=== PATIENT | female | born 2000 | race Caucasian/White ===

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

== ENCOUNTER 2022-05-07 07:57 | Emergency (ER) | payer OTHER, SELFPAY ==
--- NOTE | ~2022-05-07 | XR_ITS ---
EXAMINATION: XR ankle RT min 3V DATE: 05/07/2022 08:35 INDICATION: Right ankle injury and pain. TECHNIQUE: 4 views of right ankle were obtained. COMPARISON: None. FINDINGS: Bone alignment is normal. No fracture. Joint spaces are normal. IMPRESSION: 1. No fracture. Reviewed, dictated and finalized at location A. IMPRESSION: 1. No fracture.
[2022-05-07 08:00] VITALS: BP 128/54; PULSE 97; RESP 18; TEMP 36.6; O2SAT 98
--- NOTE | 2022-05-07 08:47 | ED.GENADULT ---
HPI - General Adult General Chief complaint: Extremity Injury, Lower Stated complaint: Right ankle injury Time Seen by Provider: 05/07/22 08:06 Source: patient Mode of arrival: ambulatory History of Present Illness HPI narrative: this is a 21-year-old female presents after she tripped over her dog last night causing pain and decreased range of motion in her right ankle currently there is no bruising no swelling but has tender lateral aspect over right ankle no numbness or tingling. Onset (ago): day(s) Location: lower extremity Severity: moderate Severity scale (1-10): 6 Related Data Home Medications Medication Instructions Recorded Confirmed bupropion HCl 150 mg 24 hr tablet, 150 mg PO DAILY 05/07/22 05/07/22 extended release escitalopram oxalate 10 mg tablet 10 mg PO HS 05/07/22 05/07/22 Allergies Allergy/AdvReac Type Severity Reaction Status Date / Time No Known Allergies Allergy Verified 05/07/22 08:32 Review of Systems Review of Systems: All systems reviewed & are unremarkable except as noted in HPI and below PMFSH Past Medical History Medical History (Updated 05/07/22 @ 08:51 by Tomi Yun MD) No active medical problems Patient denies medical problems Surgical History Surgical History No history of previous surgery Family History Family History Mother No problems noted. Social History Social History Smoking status: Never smoker Alcohol use details: does not drink alcohol Substance use: never Gender identity (if verbalized by the patient): Female Exam Const: General: healthy appearing Nutritional Appearance: well nourished Orientation/consciousness: patient oriented x3 Limitations: no limitations Eyes: Conjunctivae: conjunctivae normal Neck: Neck: normal visual inspection Chest: Chest palpation & inspection: normal inspection of the chest Resp: Effort & Inspection: normal respiratory effort Auscultation: clear to auscultation bilaterally GI: GI Palp: Yes Soft to palpation Skin: General skin exam: normal color Rashes: no rashes Wounds: no wounds Neuro: General: patient oriented x3 and moves all extremities Extrem: General: normal to inspection Other: Tender right ankle the lateral malleolus with palpation and movement Psych: Mental Status: mental status grossly normal Affect: normal affect Attitude: cooperative Course Course Emergency Course: patient received a dose of p.o. Motrin 400mg Juan C wrap was applied x-ray reviewed with patient which shows no acute fractures. Vital Signs Vital signs: Vital Signs Temperature 36.6 C 05/07/22 08:00 Pulse Rate 97 05/07/22 08:00 Respiratory Rate 18 05/07/22 08:00 Blood Pressure 128/54 L 05/07/22 08:00 Pulse Oximetry 98 05/07/22 08:00 Oxygen Delivery Room Air 05/07/22 08:00 Temperature 36.6 C 05/07/22 08:00 Pulse Rate 97 05/07/22 08:00 Respiratory Rate 18 05/07/22 08:00 Blood Pressure 128/54 L 05/07/22 08:00 Pulse Oximetry 98 05/07/22 08:00 Oxygen Delivery Room Air 05/07/22 08:00 Medical Decision Making Vital Signs Vital Signs: Vital Signs Temperature 36.6 C 05/07/22 08:00 Pulse Rate 97 05/07/22 08:00 Respiratory Rate 18 05/07/22 08:00 Blood Pressure 128/54 L 05/07/22 08:00 Pulse Oximetry 98 05/07/22 08:00 Oxygen Delivery Room Air 05/07/22 08:00 Temperature 36.6 C 05/07/22 08:00 Pulse Rate 97 05/07/22 08:00 Respiratory Rate 18 05/07/22 08:00 Blood Pressure 128/54 L 05/07/22 08:00 Pulse Oximetry 98 05/07/22 08:00 Oxygen Delivery Room Air 05/07/22 08:00 Critical Care Time Critical Care Time Critical Care Time: No Discharge Plan Discharge Clinical Impression: Ankle sprain and strain Patient Disposition: Home, Self-Care Co
[2022-05-07] MEDS: IBUPROFEN 400 MG TABLET PO (08:51)
[2022-05-07 08:58] VITALS: BP 111/74; PULSE 93; RESP 20; TEMP 36.7; O2SAT 98
== END 2022-05-07 09:15 | disposition home or self-care (01) ==
PROVIDERS: Emergency Provider Emergency Medicine; PCP Physician Assistant
DX: S93.401A Sprain of unspecified ligament of right ankle, initial encounter (principal); W01.0XXA Fall on same level from slipping, tripping and stumbling without subsequent striking against object, initial encounter
CPT/HCPCS: 73610; 99283; A9270

== ENCOUNTER 2022-08-01 17:54 | Emergency (ER) | payer OTHER, BC, SELFPAY ==
--- NOTE | ~2022-08-01 | XR_ITS ---
EXAMINATION: XR chest 2V Exam Date/Time: 08/01/2022 19:20 CDT HISTORY: fever Comparison: 02/01/2019; CT abdomen and pelvis 08/01/2022. RESULT: Lines, tubes, and devices: None. Lungs and pleura: Streaky bibasilar opacities representing atelectasis. Cardiomediastinal silhouette: Stable. Other: No acute osseous or upper abdominal finding. IMPRESSION: No acute cardiopulmonary process. Reviewed, dictated and finalized at location K.
--- NOTE | ~2022-08-01 | CT_ITS ---
EXAMINATION: CTA chest PE protocol DATE: 08/01/2022 19:58 INDICATION: tachycardia, pleuritic chest pain, elevated dimer TECHNIQUE: Computed tomography angiography (CTA) of the chest was performed with 100 mL Omnipaque-350 intravenous contrast timed to evaluate the pulmonary arteries. Coronal maximum intensity projection 3D-reconstructions were created by the technologist. The dose-length product (DLP) was 281.66 mGy-cm. Automated exposure control and iterative reconstruction technique were employed. COMPARISON: None. FINDINGS: Lung parenchyma and airways: Mild dependent atelectasis.. Pleura: Unremarkable. Thoracic inlet, axillae and chest wall: Unremarkable. Thoracic aorta: Normal. Mediastinum: Normal. Heart and pericardium: Normal. Coronary artery calcifications: Absent. Upper abdomen: No significant finding. Bones: No acute osseous finding. Pulmonary arteries: Study quality: Adequate. No pulmonary emboli detected. IMPRESSION: No CT evidence of acute pulmonary embolus. No acute intrathoracic process detected. Reviewed, dictated and finalized at location K. IMPRESSION: No CT evidence of acute pulmonary embolus. No acute intrathoracic process detec shirley.
--- NOTE | ~2022-08-01 | CT_ITS ---
EXAMINATION: CT abdomen pelvis w con DATE: 08/01/2022 19:25 INDICATION: abdominal pain, R flank pain, febrile TECHNIQUE: Computed tomography (CT) of the abdomen and pelvis was performed with 100 mL Omnipaque-350 intravenous contrast. Automated exposure control and iterative reconstruction technique were employe d. The dose-length product was 454.23 mGy-cm. COMPARISON: 10/19/2020. FINDINGS: Lower thorax: Unremarkable Liver: Normal. Biliary/Gallbladder: Gallbladder is normal. No bile duct dilation. Pancreas: No mass or duct dilation. Spleen: Normal. Adrenals:No mass. Kidneys: Patchy right upper pole enhancement with mild perinephric and periureteral stranding. No hyd ronephrosis, obstructing calcification, or suspicious mass GI tract: No small or large bowel dilation. Normal appendix. Mesentery/Peritoneum: No ascites, mass, or free air. Retroperitoneum: No mass. Pelvis: Pelvic organs are within normal limits. Soft Tissues: Soft tissues and body wall unremarkable. Bones: No acute osseous finding. IMPRESSION: Right pyelonephritis. Reviewed, dictated and finalized at location K. IMPRESSION: Right pyelonephritis.
[2022-08-01 17:57] VITALS: BP 128/78; PULSE 134; RESP 20; TEMP 38.6; O2SAT 98
--- NOTE | 2022-08-01 18:28 | ECG_ITS ---
Measurements Intervals [place] Rate: 106 P: 14 [place]: 150 QRS: 53 QRSD: 90 T: 3 QT: 308 QTc: 409 Interpretive Statements SINUS TACHYCARDIA NONSPECIFIC T-WAVE ABNORMALITY ABNORMAL RHYTHM ECG NO PREVIOUS ECG AVAILABLE FOR COMPARISON Electronically Signed On 08-02-2022 13:27:00 CDT by Santos Ayala M.D.
--- NOTE | 2022-08-01 18:33 | ED.FEMALEGU ---
HPI - Female Genitourinary General Chief complaint: Urogenital-Female <Jocelyne Morales PA-C - Last Filed: 08/02/22 00:48> Stated complaint: back pain, on abx for UTI <Jocelyne Morales PA-C - Last Filed: 08/02/22 00:48> Time Seen by Provider: 08/01/22 18:12 <Jocelyne Morales PA-C - Last Filed: 08/02/22 00:48> History of Present Illness HPI Narrative: 21-year-old female reports for evaluation of fevers for 3 days. Patient states her fevers have been as high as 103 at home with 600 mg of ibuprofen on board every 4-6 hours. She went to urgent care yesterday, was diagnosed with a UTI and put on Macrobid. She reports taking 3 doses of Macrobid without any improvement, therefore came to the ED for further evaluation. She is reporting right-sided flank pain, left upper quadrant abdominal pain and right lower quadrant abdominal pain. She reports nausea, no vomiting or diarrhea. Patient also is complaining of intermittent, sharp pleuritic chest pain x1 day. It does not radiate anywhere. Patient reports decreased p.o. intake. She denies vision changes, focal numbness or weakness, sore throat or congestion. Last dose of ibuprofen was 4 hours prior to arrival. <oJcelyne Morales PA-C - Last Filed: 08/02/22 00:48> Related Data Home medications: Home Medications Medication Instructions Recorded Confirmed bupropion HCl 150 mg 24 hr tablet, 150 mg PO DAILY 05/07/22 05/07/22 extended release escitalopram oxalate 10 mg tablet 10 mg PO HS 05/07/22 05/07/22 <Jocelyne Morales PA-C - Last Filed: 08/02/22 00:48> Allergies/Adverse reactions: Allergies Allergy/AdvReac Type Severity Reaction Status Date / Time No Known Allergies Allergy Verified 08/01/22 18:00 <CECE Gonzáles Last Filed: 08/02/22 00:48> Review of Systems Review of Systems: CONSTITUTIONAL: See HPI EYES: Denies visual changes, redness, or discharge. ENT: See HPI CARDIOVASCULAR: See HPI RESPIRATORY: Denies cough or dyspnea. GASTROINTESTINAL: See HPI GENITOURINARY: Denies dysuria or hematuria. SKIN: Denies rash or itching. MUSCULOSKELETAL: See HPI NEUROLOGIC: Denies headache, numbness, dizziness, or weakness. PSYCHIATRIC: Denies anxiety or depression. <Jocelyne Morales PA-C - Last Filed: 08/02/22 00:48> [facility] Past Medical History Medical History: Medical History (Updated 08/02/22 @ 00:00 by Diaz Mcneal) No active medical problems Patient denies medical problems <Jocelyne Morales PA-C - Last Filed: 08/02/22 00:48> Surgical History Surgical History: Surgical History No history of previous surgery <oJcelyne Morales PA-C - Last Filed: 08/02/22 00:48> Family History Family History: Family History Mother No problems noted. <Jocelyne Morales PA-C - Last Filed: 08/02/22 00:48> Social History Social History: Social History Smoking status: Never smoker Alcohol use details: does not drink alcohol Substance use: never Gender identity (if verbalized by the patient): Female <Jocelyne Morales PA-C - Last Filed: 08/02/22 00:48> Exam Narrative: GENERAL: Well-appearing, in no acute distress. Patient resting comfortably in bed. She is pleasant and conversational. HEAD: Normocephalic EYES: PERRLA, EOMI ENT: Nares clear. Mucous membranes moist. Posterior pharynx with scattered petechiae. No tonsillar swelling, erythema or exudates. Bilateral TMs are patel nonbulging. NECK: Supple. No nuchal rigidity CHEST: No respiratory distress. Clear to auscultation, no adventitious breath sounds. No chest wall tenderness to palpation. HEART: Regular rate and rhythm. No murmur heard. Normal peripheral pulses. ABDOMEN: Normal active bowel sounds. Abdomen soft with tenderness in the right lower qu
[2022-08-01] MEDS: SODIUM CHLORIDE 0.9% IV 1,000 ML 999 ML IV CONT (18:46)
[2022-08-01] MEDS: ONDANSETRON INJ 4 MG/2 ML VIAL IV PUSH (18:47)
[2022-08-01] MEDS: ACETAMINOPHEN 500 MG TABLET 1000 MG PO (18:50)
[2022-08-01 18:57] LABS: Basophils Absolute Auto 0.1 K/mm3 (0.0-0.1); Basophils Percent Auto 0.4 % (0.2-1.2); Hematocrit 38.5 % (37.0-47.0); Hemoglobin 12.4 g/dL (12.0-15.0); Immature Granulocyte Absolute 0.08 K/mm3 (0.00-0.031); Immature Granulocyte Percent A 0.5 % (0-0.5); Lymphocytes Absolute Auto 0.99 K/mm3 (0.9-3.2); Lymphocytes Percent Auto 6.7 % (18.3-44.2); Mean Corpuscular HGB Conc 32.2 g/dl (32-36); Mean Corpuscular Hemoglobin 28.7 pg (26-34); Mean Corpuscular Volume 89.1 fl (80-100); Mean Platelet Volume 10.3 fl (7.4-10.4); Monocytes Percent Auto 13.7 % (2.6-8.5); Neutrophils Absolute Auto 11.6 K/mm3 (1.3-6.7); Neutrophils Percent Auto 78.7 % (45.5-73.1); Platelet Count Result 177 k/mm3 (150-375); Red Blood Count 4.32 M/mm3 (4.2-5.4); Red Cell Distribution Width 12.7 % (11.5-14.5); White Blood Count 14.7 K/mm3 (4.5-10.0)
[2022-08-01 19:07] LABS: Alanine Aminotransferase 19 U/L (6-35); Albumin Level 4.7 g/dL (3.5-5.1); Alkaline Phosphatase 84 U/L (38-126); Anion Gap 10 mmol/L (8-16); Aspartate Amino Transferase 23 U/L (14-36); Bilirubin,Total 0.6 mg/dL (0.2-1.3); Blood Urea Nitrogen 8 mg/dL (7-17); Calcium 9.3 mg/dL (8.4-10.2); Carbon Dioxide 21 mmol/L (22-30); Chloride 105 mmol/L (98-107); Estimated CRCL calculation 88 ml/min; Estimated Glomerular Filt Rate > 60; Glucose 106 mg/dL (65-110); Lipase 44 U/L (23-300); Potassium 3.8 mmol/L (3.4-5.0); Sodium 136 mmol/L (137-145)
[2022-08-01 19:15] LABS: Appearance Urine Cloudy (Clear); Bacteria Urine 1+ /hpf; Bilirubin Urine Negative (Negative); Blood Urine 1+ (Negative); Color Urine Yellow (Yellow); Glucose Urine UA Negative (Negative); Ketones Urine 2+ mg/dL (Negative); Leukocyte Esterase Ur Trace LEU/UL (Negative); Nitrate Urine Negative (Negative); Protein Urine 1+ mg/dL (Negative); Specific Grav Ur 1.015 (1.001-1.035); Squamous Epithelial Cell Urine Moderate /hpf (Few); Urobilinogen Urine 0.2 mg/dL (<2.0); pH Urine 5.5 (5.0-9.0)
[2022-08-01 19:19] LABS: Troponin I < 0.012 ng/mL (0.000-0.034)
[2022-08-01 19:22] LABS: D Dimer 0.59 ug/mL (<0.48)
[2022-08-01 19:26] LABS: Add Urine Microscopic? YES
[2022-08-01 19:31] LABS: Strep Group A RT-PCR NOT DETECTED (Negative)
[2022-08-01 19:41] VITALS: BP 115/67; PULSE 101; RESP 18; TEMP 37.6; O2SAT 100
[2022-08-01 19:43] LABS: Influenza A QL RT-PCR Negative (Negative); Influenza B QL RT-PCR Negative (Negative); SARS-CoV-2 RNA PCR Negative (Negative)
[2022-08-01 21:52] VITALS: BP 114/64; PULSE 86; RESP 16; TEMP 37; O2SAT 100
== END 2022-08-01 21:53 | disposition home or self-care (01) ==
PROVIDERS: Emergency Provider Physician Assistant; PCP Physician Assistant
DX: N12 Tubulo-interstitial nephritis, not specified as acute or chronic (principal); Z20.822 Contact with and (suspected) exposure to COVID-19
CPT/HCPCS: 36415; 71046; 71275; 74177; 80053; 81001; 81025; 83605; 83690; 84484; 85025; 85380; 87086; 87636; 87651; 93005; 96361; 96365; 96375; 99284; A9270; J0696; J2405; J7030; Q9967

== ENCOUNTER 2023-03-21 15:54 | Outpatient (CLI) | payer OTHER, BC, SELFPAY ==
[2023-03-21 16:30] LABS: Hematocrit 38.6 % (35.0-49.0); Hemoglobin 12.6 g/dL (12.0-15.0); Mean Corpuscular HGB Conc 32.6 g/dL (32.0-36.0); Mean Corpuscular Hemoglobin 28.4 pg (27.0-31.0); Mean Corpuscular Volume 87.1 fL (78.0-102.0); Mean Platelet Volume 10.1 fl (9.2-11.8); Platelet Count Result 220 K/mm3 (150-420); Red Blood Count 4.43 M/mm3 (4.20-5.40); Red Cell Distribution Width 12.1 % (11.6-14.4); White Blood Count 6.7 K/mm3 (4.8-10.8)
[2023-03-21 16:47] LABS: CRP < 0.5 mg/dL (0.0-0.9)
[2023-03-21 17:20] LABS: Erythrocyte Sedimentation Rate 5 mm/hr (0-15)
[2023-03-27 21:38] LABS: Immunoglobulin A 129 mg/dL (47-310); TTG IGA AB <1.0 U/mL (<15.0)
== END 2023-03-21 15:55 | disposition home or self-care (01) ==
PROVIDERS: PCP Family Medicine; Visit Provider Nurse Practitioner
DX: R14.0 Abdominal distension (gaseous) (principal); R11.0 Nausea; R10.13 Epigastric pain; K21.9 Gastro-esophageal reflux disease without esophagitis; K90.49 Malabsorption due to intolerance, not elsewhere classified
CPT/HCPCS: 36415; 82784; 83516; 85027; 85652; 86140

== ENCOUNTER 2023-05-05 00:21 | Day surgery (SDC) | payer OTHER, BC, SELFPAY ==
[2023-04-26 11:50] VITALS: BMI 25.0
--- NOTE | 2023-05-03 10:31 | SUR.PREOP ---
Patient called regarding upcoming procedure. Reviewed preop instructions, appointment times, and procedure prep.
[2023-05-05 10:02] VITALS: BP 113/77; PULSE 77; RESP 20; TEMP 36.1; O2SAT 100
[2023-05-05] MEDS: LACTATED RINGERS 1,000 ML 150 ML IV CONT (10:16)
--- NOTE | 2023-05-05 11:03 | P.HP_ITS ---
History of Present Illness History of Present Illness Consent: Risks, benefits, and alternatives have been discussed and questions answered. Patient agrees to proceed with procedure. Chief complaint: GERD,Epigastric Pain,Gaseous,Nausea Narrative: Milagro Robles is a 22 year old female with bloating, discomfort after eating, she can not burp. Trial of omeprazole did not make a difference, serology for celiac negative. Review of Systems Review of Systems: All systems reviewed & are unremarkable except as noted in HPI and below PMFSH Past Medical History Medical History (Updated 03/21/23 @ 11:42 by Irene Gómez, MECHANICAL MAINTENANCE INSTRUCTOR) Abdominal bloating Epigastric pain GERD (gastroesophageal reflux disease) Nausea No active medical problems Patient denies medical problems Surgical History Surgical History No history of previous surgery [place] teeth removed Family History Family History Mother No problems noted. Social History Social History Smoking status: Never smoker Alcohol intake: current Drinks per week: 2 Alcohol use details: socially Substance use: never Substance use type: does not use Living arrangements: with family Gender identity (if verbalized by the patient): Female Spiritual care concerns: No Meds Home Medications and Allergies Home Medications Medication Instructions Recorded Confirmed Type bupropion HCl 300 mg 24 hr tablet, 300 mg PO QAM #30 tabs 03/20/23 05/05/23 Rx extended release omeprazole 20 mg capsule,delayed 20 mg PO DAILY #30 caps 03/21/23 04/26/23 Rx release Allergies Allergy/AdvReac Type Severity Reaction Status Date / Time No Known Allergies Allergy Verified 05/05/23 10:00 Vital Signs Vital Signs - 24 hr 05/05/23 10:02 Temperature 97 F L Pulse Rate 77 Respiratory Rate 20 Blood Pressure 113/77 Pulse Oximetry 100 Oxygen Delivery Room Air Exam Const: General: comfortable and no acute distress HENMT: Face/Nose/Sinus: Normal nares present Eyes: General: appearance normal, both eyes and all related structures Neck: Neck: no JVD Resp: Auscultation: clear to auscultation bilaterally Cardio: Rate: regular rate Rhythm: regular rhythm GI: Inspection: non-distended GI Palp: Yes Soft to palpation Skin: General skin exam: normal color Neuro: General: gait normal Speech: normal speech Extrem: General: normal to inspection Psych: Mental Status: mental status grossly normal Assessment and Plan Assessment and plan (1) Abdominal bloating: Code(s): R14.0 - Abdominal distension (gaseous) Status: Acute Assessment and Plan: egd with bx (2) Food intolerance in adult: Code(s): K90.49 - Malabsorption due to intolerance, not elsewhere classified Status: Acute
--- NOTE | 2023-05-05 11:03 | WPDANESEPPF ---
Anes - Initial Pre Proc Eval Procedure: Operation Date: 05/05/23 11:30 Proposed Procedures p Esophagogastroduodenoscopy - Kennedy Patel MD Date/Time: 05/05/23 11:03 Surgeon: Kennedy Patel MD Pre Op Diagnosis: GERD,Epigastric Pain,Gaseous,Nausea Patient Data Age: 22 Gender: F Height: 1.63 m Weight: 62.1 kg Last Vital Signs Temp 97 F L 05/05/23 10:02 Pulse 77 05/05/23 10:02 Resp 20 05/05/23 10:02 BP 113/77 05/05/23 10:02 Pulse Ox 100 05/05/23 10:02 O2 Del Method Room Air 05/05/23 10:02 Allergies Allergy/AdvReac Type Severity Reaction Status Date / Time No Known Allergies Allergy Verified 05/05/23 10:00 Home Medications Medication Instructions Recorded Confirmed Type bupropion HCl 300 mg 24 hr tablet, 300 mg PO QAM #30 tabs 03/20/23 05/05/23 Rx extended release omeprazole 20 mg capsule,delayed 20 mg PO DAILY #30 caps 03/21/23 04/26/23 Rx release Patient hx anesthesia problems: none Family hx anesthesia problems: none Results Review: All pre-operative results and documents have been reviewed as part of the pre-operative evaluation. [facility] Past Medical History Medical History (Updated 03/21/23 @ 11:42 by Irene Gómez APRN) Abdominal bloating Epigastric pain GERD (gastroesophageal reflux disease) Nausea No active medical problems Patient denies medical problems Surgical History Surgical History No history of previous surgery [place] teeth removed Family History Family History Mother No problems noted. Social History Social History Smoking status: Never smoker Alcohol intake: current Drinks per week: 2 Alcohol use details: socially Substance use: never Substance use type: does not use Living arrangements: with family Gender identity (if verbalized by the patient): Female Spiritual care concerns: No Anes - Eval Final PreProcedure Day of Procedure 05/05/23 11:03 Patient weight: normal Heart: regular rate and rhythm Lungs: clear to auscultation Airway: Mallampati scale class II Neurological: alert and oriented Last oral intake: >/= 8 hours ASA classification: II Emergent: no Anesthetic plan: proceed Anesthesia type and monitoring: general GIVS and standard monitoring Results Review: All pre-operative results and documents have been reviewed as part of the pre-operative evaluation. Informed Consent: The patient's anesthetic plan and its attendant risks and benefits were discussed with the patient/family/POA. Questions were solicited and answers provided to the satisfaction of the patient/family/POA.
[2023-05-05 11:17] VITALS: BP 100/65; PULSE 76; RESP 21; O2SAT 100
[2023-05-05 11:27] VITALS: BP 105/64; PULSE 78; RESP 18; O2SAT 100
[2023-05-05 11:37] VITALS: BP 102/74; PULSE 68; RESP 20; O2SAT 100
== END 2023-05-05 11:45 | disposition home or self-care (01) ==
PROVIDERS: PCP Family Medicine; Visit Provider Internal Medicine Gastroenterology
PROC: 0DJ08ZZ Inspection of Upper Intestinal Tract, Via Natural or Artificial Opening Endoscopic (ICD-10-PCS; CPT 43235; principal; 2023-05-05 11:30)
DX: K29.50 Unspecified chronic gastritis without bleeding (principal); K21.9 Gastro-esophageal reflux disease without esophagitis
CPT/HCPCS: 43239; 88305; J2001; J2704; J7120

== ENCOUNTER 2023-06-23 12:32 | Outpatient (NON) | payer OTHER, BC, SELFPAY ==
[2023-06-23 12:44] LABS: Appearance Urine Clear (Clear); Bilirubin Urine Negative (Negative); Blood Urine 3+ (Negative); Color Urine Light Yellow (Yellow); Glucose Urine UA Negative (Negative); Ketones Urine Negative (Negative); Leukocyte Esterase Ur 1+ (Negative); Nitrate Urine Negative (Negative); Protein Urine Trace (Negative); Urobilinogen Urine 0.2 mg/dL (0.2-1.0)
[2023-06-23 13:05] LABS: Add Urine Microscopic? YES; Bacteria Urine 2+ /hpf; Squamous Epithelial Cell Urine Few /hpf (Few)
== END 2023-06-23 12:33 | disposition home or self-care (01) ==
LOC: CHSLAB 12:34
PROVIDERS: Visit Provider Nurse Practitioner Family
DX: N39.0 Urinary tract infection, site not specified (principal)
CPT/HCPCS: 81001; 87077; 87086; 87088; 87186

== ENCOUNTER 2023-07-12 07:33 | Outpatient (CLI) | payer OTHER, BC, SELFPAY ==
--- NOTE | ~2023-07-12 | US_ITS ---
US abdomen limited INDICATION: Abdominal pain PROCEDURE: Realtime right upper abdominal ultrasound. COMPARISON: No prior studies for comparison. FINDINGS: The pancreas is normal without focal mass or pancreatic ductal dilation. Liver echotexture is normal without focal mass or intrahepatic biliary dilatation. There is normal directional flow i n the portal vein. The gallbladder is normal without stones, gallbladder wall thickening or pericholecystic fluid. Comm on bile duct measures 2 mm. No sonographic Alamo's sign. IMPRESSION: 1: Normal limited abdominal ultrasound. Reviewed, dictated and finalized at location B.
== END 2023-07-12 07:34 | disposition home or self-care (01) ==
PROVIDERS: PCP Nurse Practitioner Family; Visit Provider Nurse Practitioner
DX: K31.89 Other diseases of stomach and duodenum (principal); R14.0 Abdominal distension (gaseous)
CPT/HCPCS: 76705

== ENCOUNTER 2023-07-13 08:04 | Outpatient (CLI) | payer OTHER, BC, SELFPAY ==
--- NOTE | ~2023-07-13 | NM_ITS ---
EXAMINATION: NM hepatobiliary wo pharm DATE: 07/13/2023 10:39 INDICATION: Postprandial bloating. Reactive gastritis. COMPARISON: CT abdomen and pelvis 08/01/2022 TECHNIQUE: 5.1 mCi Tc-99m mebrofenin (Choletec) was administered intravenously. Scintigraphic images of the abdomen were obtained for one hour. Then, the patient drank 8 oz Ensure, and imaging was cont inued for 60 minutes. FINDINGS: There is normal clearance of radiotracer from the blood pool. There is homogeneous tracer u ptake by the liver. Activity progresses to the bowel and gallbladder. Gallbladder ejection fraction (GBEF) was 60%. Note that with this technique, normal GBEF >= 33%. IMPRESSION: 1. Normal hepatobiliary scintigraphy. Reviewed, dictated and finalized at location A.
== END 2023-07-13 08:05 | disposition home or self-care (01) ==
PROVIDERS: PCP Nurse Practitioner Family; Visit Provider Nurse Practitioner
DX: K31.89 Other diseases of stomach and duodenum (principal); R14.0 Abdominal distension (gaseous)
CPT/HCPCS: 78226; A9537

== ENCOUNTER 2023-07-14 07:38 | Outpatient (CLI) | payer OTHER, BC, SELFPAY ==
--- NOTE | ~2023-07-14 | NM_ITS ---
EXAM: NM gastric emptying study DATE: 07/14/2023 15:38 INDICATION: Postprandial bloating. TECHNIQUE: A gastric emptying study was performed using the methodology of Pablo WORTHY, et al. J Nucl Med 2007; 48:568-572. The patient was given a meal consisting of 2 scrambled eggs labeled with 0.985 mCi Tc-99m sulfur colloid, 2 slices of toast, two packages of jam, and approximately 120 mL of water . Simultaneous anterior and posterior 1-min images of the abdomen were obtained with the patient supi ne at multiple time points over a total period of 4 hours. The geometric mean of anterior and posteri or views was determined, and the percentage retention was calculated for each time point. COMPARISON: CT abdomen and pelvis 08/01/2022 FINDINGS: Gastric retention of the radiotracer-labeled meal was 55%, 20%, and 1% at the 1-hour, 2-ho ur, and 4-hour time points, respectively. With this technique, apparent rapid gastric emptying is sug gested by <30% gastric retention at 1 hour. Delayed gastric emptying is defined by gastric retention of >90% at 1 hour, >60% retention at 2 hours, or >10% retention at 4 hours. IMPRESSION: 1. Normal gastric emptying. Reviewed, dictated and finalized at location A. IMPRESSION: 1. Normal gastric emptying.
== END 2023-07-14 07:39 | disposition home or self-care (01) ==
LOC: ANHIMG 07:41
PROVIDERS: PCP Nurse Practitioner Family; Visit Provider Nurse Practitioner
DX: R14.0 Abdominal distension (gaseous) (principal)
CPT/HCPCS: 78264; A9541

== ENCOUNTER 2023-12-13 09:44 | Outpatient (CLI) | payer OTHER, BC, SELFPAY ==
[2023-12-13 10:31] LABS: Hemoglobin 12.9 g/dL (12.0-15.0); Mean Corpuscular HGB Conc 33.9 g/dl (32-36); Mean Corpuscular Hemoglobin 29.8 pg (26-34); Mean Corpuscular Volume 87.8 fl (80-100); Mean Platelet Volume 9.3 fl (7.4-10.4); Platelet Count Result 225 k/mm3 (150-375); Red Blood Count 4.33 M/mm3 (4.2-5.4); White Blood Count 5.2 K/mm3 (4.5-10.0)
[2023-12-13 11:08] LABS: Alanine Aminotransferase 23 U/L (6-35); Albumin Level 4.9 g/dL (3.5-5.1); Alkaline Phosphatase 44 U/L (38-126); Anion Gap 9 mmol/L (4-12); Aspartate Amino Transferase 26 U/L (14-36); Bilirubin,Total 0.6 mg/dL (0.2-1.3); Blood Urea Nitrogen 14 mg/dL (7-17); CRP < 0.5 mg/dL (<1.0); Calcium 9.6 mg/dL (8.4-10.2); Carbon Dioxide 28 mmol/L (22-30); Chloride 103 mmol/L (98-107); Estimated Glomerular Filt Rate > 60; Glucose 89 mg/dL (65-110); Potassium 4.2 mmol/L (3.4-5.0); Sodium 140 mmol/L (137-145)
[2023-12-13 11:35] LABS: Erythrocyte Sedimentation Rate 12 mm/hr (0-20)
[2023-12-13 11:41] LABS: Iron 276 ug/dL (37-170)
[2023-12-13 11:51] LABS: Percent Iron Saturation 80 % (20-50)
[2023-12-19 12:54] LABS: Vitamin D 1,25 (OH)2 Total 35 pg/mL (18-72); Vitamin D2 1,25 (OH)2 <8 pg/mL; Vitamin D3 1,25 (OH)2 35 pg/mL
== END 2023-12-13 09:45 | disposition home or self-care (01) ==
LOC: ANHLAB 09:45
PROVIDERS: PCP Family Medicine; Visit Provider Nurse Practitioner
DX: R10.30 Lower abdominal pain, unspecified (principal); R14.0 Abdominal distension (gaseous)
CPT/HCPCS: 36415; 80053; 82607; 82652; 82728; 83540; 83550; 85027; 85652; 86140

== ENCOUNTER 2024-01-19 00:06 | Day surgery (SDC) | payer OTHER, BC, SELFPAY ==
[2024-01-08 13:04] VITALS: BMI 23.3
[2024-01-19 06:48] VITALS: BP 110/88; PULSE 88; RESP 20; TEMP 35.8; O2SAT 100; BMI 23.5
[2024-01-19] MEDS: LACTATED RINGERS 1,000 ML 150 ML IV CONT (07:15)
--- NOTE | 2024-01-19 07:23 | P.PNAN_ITS ---
Anes - Initial Pre Proc Eval Procedure: Operation Date: 01/19/24 08:00 Proposed Procedures p Colonoscopy - Mio Abdalla MD Date/Time: 01/19/24 07:23 Surgeon: Mio Abdalla MD Pre Op Diagnosis: lower abd pain, abd distension (gaseous) Patient Data Age: 23 Gender: F Height: 1.65 m Weight: 64.2 kg Last Vital Signs Temp 35.8 C L 01/19/24 06:48 Pulse 88 01/19/24 06:48 Resp 20 01/19/24 06:48 BP 110/88 01/19/24 06:48 Pulse Ox 100 01/19/24 06:48 O2 Del Method Room Air 01/19/24 06:48 Allergies Allergy/AdvReac Type Severity Reaction Status Date / Time No Known Allergies Allergy Verified 01/19/24 07:02 Home Medications ?Medication ?Instructions ?Recorded ?Confirmed ?Type nortriptyline 10 mg capsule 10 mg PO QHS #30 caps 12/13/23 01/19/24 Rx omeprazole 40 mg capsule,delayed 40 mg PO DAILY #30 caps 12/13/23 01/19/24 Rx release Vitamin D (with calcium) 1 cap PO DAILY 01/08/24 01/19/24 History bupropion HCl 300 mg 24 hr tablet, 300 mg PO DAILY 01/08/24 01/19/24 History extended release clindamycin 1.2 %(1 %base)-benzoyl 1 applic topical DAILY 01/08/24 01/19/24 History peroxide 3.75 % topical gel in pump Patient hx anesthesia problems: none Family hx anesthesia problems: none Results Review: All pre-operative results and documents have been reviewed as part of the pre- operative evaluation. [facility] Past Medical History Medical History GERD (gastroesophageal reflux disease) Epigastric pain Abdominal bloating Nausea Patient denies medical problems No active medical problems Surgical History Surgical History [place] teeth removed No history of previous surgery Family History Family History Mother No problems noted. Social History Social History Smoking status: Never smoker Alcohol intake: current Drinks per week: 2 Alcohol use details: socially Substance use: never Substance use type: does not use Living arrangements: with family Gender identity (if verbalized by the patient): Female Spiritual care concerns: No Anes - Eval Final PreProcedure Day of Procedure 01/19/24 07:23 Patient weight: normal Heart: regular rate and rhythm Lungs: clear to auscultation Airway: Mallampati scale class II Neurological: alert and oriented Last oral intake: >/= 8 hours ASA classification: II Emergent: no Anesthetic plan: proceed Anesthesia type and monitoring: general GIVS and standard monitoring Results Review: All pre-operative results and documents have been reviewed as part of the pre- operative evaluation. Informed Consent: The patient's anesthetic plan and its attendant risks and benefits were discussed with the patient/family/POA. Questions were solicited and answers provided to the satisfaction of the patient/family/POA.
[2024-01-19 07:26] LABS: BEDSIDEPREGUCG Negative (Negative)
--- NOTE | 2024-01-19 07:57 | P.HP_ITS ---
H&P: HPI History of Present Illness Date/Time: 01/19/24 07:57 Chief Complaint: Abdominal pain Narrative: this patient has a longstanding history of abdominal pain, bloating, and recently found to have high calprotectin level, around 1200. She is referred for colonoscopy to rule out inflammatory bowel disease. She has been extensively studied for structural or mucosal diseases of the GI tract, and had had endoscopy, gastric emptying studies, serologic studies to rule out celiac disease, all within normal limits. Review of Systems Review of Systems: All systems reviewed & are unremarkable except as noted in HPI and below PMFSH Past Medical History Medical History GERD (gastroesophageal reflux disease) Epigastric pain Abdominal bloating Nausea Patient denies medical problems No active medical problems Surgical History Surgical History [place] teeth removed No history of previous surgery Family History Family History Mother No problems noted. Social History Social History Smoking status: Never smoker Alcohol intake: current Drinks per week: 2 Alcohol use details: socially Substance use: never Substance use type: does not use Living arrangements: with family Gender identity (if verbalized by the patient): Female Spiritual care concerns: No Meds Home Medications and Allergies Home Medications ?Medication ?Instructions ?Recorded ?Confirmed ?Type nortriptyline 10 mg capsule 10 mg PO QHS #30 caps 12/13/23 01/19/24 Rx omeprazole 40 mg capsule,delayed 40 mg PO DAILY #30 caps 12/13/23 01/19/24 Rx release Vitamin D (with calcium) 1 cap PO DAILY 01/08/24 01/19/24 History bupropion HCl 300 mg 24 hr tablet, 300 mg PO DAILY 01/08/24 01/19/24 History extended release clindamycin 1.2 %(1 %base)-benzoyl 1 applic topical DAILY 01/08/24 01/19/24 History peroxide 3.75 % topical gel in pump Allergies Allergy/AdvReac Type Severity Reaction Status Date / Time No Known Allergies Allergy Verified 01/19/24 07:02 Vital Signs Vital Signs - 24 hr 01/19/24 06:48 Temperature 96.4 F L Pulse Rate 88 Respiratory Rate 20 Blood Pressure 110/88 Pulse Oximetry 100 Oxygen Delivery Room Air Exam Const: General: comfortable and no acute distress HENMT: Face/Nose/Sinus: Normal nares present Eyes: General: appearance normal, both eyes and all related structures Neck: Neck: no JVD Resp: Auscultation: clear to auscultation bilaterally Cardio: Rate: regular rate Rhythm: regular rhythm GI: Inspection: non-distended GI Palp: Yes Soft to palpation Skin: General skin exam: normal color Neuro: General: gait normal Speech: normal speech Extrem: General: normal to inspection Psych: Mental Status: mental status grossly normal Assessment and Plan Assessment and plan (1) Elevated fecal calprotectin: Code(s): R19.5 - Other fecal abnormalities Status: Acute Assessment and Plan: Will perform colonoscopy to investigate elevated calprotectin, ruling out inflammatory bowel disease. The patient does not have rectal bleeding, diarrhea or tenesmus. The patient is deemed a good candidate for the procedure. Consent signed. Will proceed.
[2024-01-19 08:23] VITALS: BP 102/69; PULSE 90; RESP 18; O2SAT 100
[2024-01-19 08:33] VITALS: BP 103/68; PULSE 83; RESP 20; O2SAT 100
[2024-01-19 08:43] VITALS: BP 99/62; PULSE 83; RESP 20; O2SAT 100
== END 2024-01-19 08:55 | disposition home or self-care (01) ==
PROVIDERS: Anesthesiology; PCP Nurse Practitioner Family; Referring Provider Nurse Practitioner; Visit Provider Internal Medicine Gastroenterology
PROC: 0DJD8ZZ Inspection of Lower Intestinal Tract, Via Natural or Artificial Opening Endoscopic (ICD-10-PCS; CPT 45378; principal; 2024-01-19 08:00)
DX: R19.5 Other fecal abnormalities (principal); K21.9 Gastro-esophageal reflux disease without esophagitis; Z98.890 Other specified postprocedural states
CPT/HCPCS: 45380; 88305; J2003; J2704; J7120

== ENCOUNTER 2024-02-01 17:10 | Outpatient (CLI) | payer BC, OTHER, SELFPAY | END 2024-02-01 17:11 | disposition home or self-care (01) | LOC: ANHLAB 17:14 | PROVIDERS: PCP Nurse Practitioner Family; Visit Provider Obstetrics & Gynecology | DX: Z01.812 Encounter for preprocedural laboratory examination (principal); R10.2 Pelvic and perineal pain | CPT/HCPCS: 36415; 86850; 86900; 86901 ==

== ENCOUNTER 2024-02-08 01:28 | Day surgery (SDC) | payer BC, OTHER, SELFPAY ==
[2024-01-26 12:13] VITALS: BMI 24.1
--- NOTE | 2024-01-26 12:21 | PC.NURSE ---
Report to the Outpatient Waiting Room, entrance under the green pavilion located off [facility], at time _0600_ on date _[id number]_. Planned Procedure Time: _0730_.? Time changes happen often and if your time is changed the preop area will call you the afternoon before. - You and your visitor will be asked to self-screen and do not enter if you have any COVID symptoms. Please call surgeon if you need to reschedule. - A mask is optional within the hospital at this time. Patients may have clear liquids (water, carbonated beverages, clear teas, apple juice) until 3 hours prior to surgery with a maximum of 20 ounces. - No food from midnight until time of surgery and no smoking. This includes no chewing gum, candy or mints. Take only the following medications with a SIP of water on the morning of surgery: ____Bupropion DO NOT STOP ANY OF YOUR OTHER PRESCRIPTION MEDICATIONS PRIOR TO SURGERY EXCEPT THE FOLLOWING Medications to discontinue per physician ____None Please no make-up, nail libyan, hairspray, perfume, deodorant, or body powder the day of surgery.? No jewelry (including any body piercings) or valuables the day of surgery, leave them at home.? Please take a shower or bath the night before, or the morning of, surgery with an antibacterial soap.? Wear comfortable, loose fitting clothing.? - Jewelry must be removed prior to entering the operating room.? Rings and piercings that are not removed may be cut off. - The hospital will not accept responsibility for valuables.? - Please leave all valuables, including medications, at home the day of surgery. If you are going home after surgery, a licensed tilt tray driver must drive you home.? - NO public transportation without another adult if you receive anesthesia. - We recommend that an adult stay with you for 24 hours following discharge. - We also recommend that you do not drive, make important decision, drink alcoholic beverages, or take any drugs that were not prescribed by your health care provider for at least 24 hours after your discharge time. Follow any additional instructions given to you from your surgeon. Telephone instructions given to _Milagro_and asked if any additional questions and then verbalized understanding. Patient advised to call surgeon office or pre surgery nurse liaison [phone] if any additional questions.
--- NOTE | 2024-02-05 11:55 | PM.IMHP ---
H&P: HPI History of Present Illness Date/Time: 02/05/24 11:55 Chief Complaint: Pelvic pain Narrative: 23-year-old female admitted for laparoscopy secondary to chronic and severe pelvic pain she has dyspareunia and discomfort ultrasound was unhelpful risks and benefits of this procedure reviewed clear exclusive of , aspiration pneumonia, bleeding, transfusion, perforation injury to bowel, bladder, ureters, or other internal organs with need for open laparotomy. She received the [employer] handout entitled laparoscopy. She had all questions answered. She asked to proceed. Review of Systems Review of Systems: All systems reviewed & are unremarkable except as noted in HPI and below PMFSH Past Medical History Medical History GERD (gastroesophageal reflux disease) Epigastric pain Abdominal bloating Nausea Patient denies medical problems No active medical problems Surgical History Surgical History [place] teeth removed No history of previous surgery Family History Family History Mother No problems noted. Social History Social History Smoking status: Never smoker Tobacco type: e-cigarettes/vaping Additional smoking assessment comments: quit vaping. Alcohol intake: current Drinks per week: 2 Alcohol use details: socially Substance use: never Substance use type: does not use Living arrangements: with family Gender identity (if verbalized by the patient): Female Spiritual care concerns: No Meds Home Medications and Allergies Home Medications ?Medication ?Instructions ?Recorded ?Confirmed ?Type bupropion HCl 300 mg 24 hr tablet, 300 mg PO DAILY 01/08/24 01/26/24 History extended release clindamycin 1.2 %(1 %base)-benzoyl 1 applic topical DAILY 01/08/24 01/26/24 History peroxide 3.75 % topical gel in pump Allergies Allergy/AdvReac Type Severity Reaction Status Date / Time No Known Allergies Allergy Verified 01/26/24 12:12 Exam Const: General: cooperative, healthy appearing and comfortable Nutritional Appearance: average body habitus Orientation/consciousness: oriented to person, oriented to place and oriented to time HENMT: Head: normal to inspection Resp: Effort & Inspection: normal respiratory effort Cardio: Rate: regular rate Rhythm: regular rhythm Heart sounds: S1 normal heart sound present and S2 normal heart sound present GI: Inspection: normal to inspection : External Female Exam: normal external appearance Speculum Exam - Vagina: normal appearance of the vagina Speculum Exam - Cervix: normal appearance of the cervix Bimanual exam- vagina & uterus: non-tender Bimanual Exam- Adnexa, other: tender bilaterally Assessment and Plan Assessment and plan (1) Pelvic pain: Code(s): R10.2 - Pelvic and perineal pain Status: Acute Plan proceed with laparoscopy
[2024-02-08] VITALS (10 sets, daily range): BP systolic 100–124; BP diastolic 55–76; PULSE 78–92; RESP 16–20; TEMP 36.4–37.1; O2SAT 98–100
--- NOTE | 2024-02-08 06:41 | WPDHPUPDATE1 ---
History and Physical Update Update Date/Time: 02/08/24 06:41 History and Physical has been reviewed, including an updated exam of the patient. There are NO changes in the patient's condition. Risks, benefits, and alternatives have been discussed and questions answered. Patient agrees to proceed with procedure.
--- NOTE | 2024-02-08 06:48 | WPDHPUPDATE1 ---
History and Physical Update Update Date/Time: 02/08/24 06:48 History and Physical has been reviewed, including an updated exam of the patient. There are NO changes in the patient's condition. Risks, benefits, and alternatives have been discussed and questions answered. Patient agrees to proceed with procedure. add chromotubtion per patient request
[2024-02-08] MEDS: ACETAMINOPHEN 500 MG TABLET 1000 MG PO (06:54)
[2024-02-08] MEDS: LACTATED RINGERS 1,000 ML 30 ML IV CONT (06:54)
[2024-02-08] MEDS: KETOROLAC 15 MG/ML VIAL (*BKC) IV PUSH (06:54)
--- NOTE | 2024-02-08 07:24 | P.PNAN_ITS ---
Anes - Initial Pre Proc Eval Procedure: Operation Date: 02/08/24 07:30 Proposed Procedures p Diagnostic Laparoscopy - Alex Gonzalez MD Date/Time: 02/08/24 07:24 Surgeon: Alex Gonzalez MD Pre Op Diagnosis: pelvic pain, endometriosis, Dysmenorrhea Patient Data Age: 23 Gender: F Height: 1.65 m Weight: 65.9 kg Allergies Allergy/AdvReac Type Severity Reaction Status Date / Time No Known Allergies Allergy Verified 01/26/24 12:12 Home Medications ?Medication ?Instructions ?Recorded ?Confirmed ?Type bupropion HCl 300 mg 24 hr tablet, 300 mg PO DAILY 01/08/24 01/26/24 History extended release clindamycin 1.2 %(1 %base)-benzoyl 1 applic topical DAILY 01/08/24 01/26/24 History peroxide 3.75 % topical gel in pump hydrocodone 5 mg-acetaminophen 325 1 tablet PO Q4H PRN pain #20 tabs 02/08/24 Rx mg tablet Patient hx anesthesia problems: none Family hx anesthesia problems: none Results Review: All pre-operative results and documents have been reviewed as part of the pre- operative evaluation. [facility] Past Medical History Medical History GERD (gastroesophageal reflux disease) Epigastric pain Abdominal bloating Nausea Patient denies medical problems No active medical problems Surgical History Surgical History [place] teeth removed No history of previous surgery Family History Family History Mother No problems noted. Social History Social History Smoking status: Never smoker Tobacco type: e-cigarettes/vaping Additional smoking assessment comments: quit vaping. Alcohol intake: current Drinks per week: 2 Alcohol use details: socially Substance use: never Substance use type: does not use Living arrangements: with family Gender identity (if verbalized by the patient): Female Spiritual care concerns: No Anes - Eval Final PreProcedure Day of Procedure 02/08/24 07:24 Patient weight: normal Heart: regular rate and rhythm Lungs: clear to auscultation Airway: Mallampati scale class 1 Neurological: alert and oriented Last oral intake: >/= 8 hours ASA classification: I Emergent: no Anesthetic plan: proceed Anesthesia type and monitoring: general ETT and standard monitoring Results Review: All pre-operative results and documents have been reviewed as part of the pre- operative evaluation. Pt in excellent health overall. Informed Consent: The patient's anesthetic plan and its attendant risks and benefits were discussed with the patient/family/POA. Questions were solicited and answers provided to the satisfaction of the patient/family/POA.
[2024-02-08] MEDS: METHYLENE BLUE 0.5% INJ 10 ML AMPULE 20 ML IRRIGATION (07:55)
--- NOTE | 2024-02-08 07:55 | P.OP_ITS ---
Procedure Note - Detailed Date of Procedure 02/08/24 Pre-op Diagnosis pelvic pain, endometriosis, Dysmenorrhea Post-op Diagnosis Same Procedure Performed Laparoscopy with destruction of endometriosis. Chromopertubation Surgeon Alex Gonzalez MD Anesthesia General Indications 23-year-old female history of endometriosis admitted for laparoscopy and chromopertubation Findings Multiple areas of powder burn endometriosis along each uterosacral ligament about 10cc of serosanguineous fluid cul-de-sac normal-appearing ovaries. Tubes were patent. Uterus appeared adenoma attic. Normal-appearing appendix/gallbladder/liver edge Description of Procedure Patient was prepped and draped in the normal sterile fashion placed in dorsal lithotomy position. Under excellent general endotracheal anesthesia weighted s peculum placed in posterior fornix vagina. Anterior lip of the cervix grasped with single-tooth tenaculum. Castillo's cannula inserted the single-tooth and attached for uterine manipulation and chromotubation later. The bladder emptied of clear urine the weighted speculum was removed gloves were changed. An infraumbilical incision made the Veress needle passed in the. With CO2 CO2 gas to 15 of mercury. The 5mm trocar advanced with the Optiview under direct visualization assuring no injury. The the patient placed in Trendelenburg and a suprapubic incision made. 5mm trocar advanced under direct visualization assuring. About 20cc of serosanguineous fluid was noted the cul-de-sac and this was vigorously irrigated. Multiple areas of endometriosis along right left uterosacral ligaments were seen and these were point cauterized at 35 w per 2nd with monopolar cautery. Appendix gallbladder and liver edge appeared within normal limits. No other abnormalities were seen. Methylene blue was pushed through the uterus and cervix and each tube drained clearly. Uterus itself did appear spongy and possibly consistent with the adenomyosis. The instruments withdrawn. The patient was awakened. The patient went recovery in satisfactory condition. The incisions closed with 4 Monocryl and glue after gas removed from the abdomen. There were no complications and all sponge, needle, instrument counts were correct. Estimated Blood Loss 5 Drains No Packing No Pathology None sent Complications No immediate complications Condition Stable Disposition PACU
[2024-02-08 07:56] LABS: BEDSIDEPREGUCG Negative (Negative)
[2024-02-08] MEDS: oxyCODONE HCL (*CRX) 5 MG TAB IR PO (09:15)
== END 2024-02-08 10:48 | disposition home or self-care (01) ==
PROVIDERS: PCP Nurse Practitioner Family; Visit Provider Obstetrics & Gynecology
PROC: (CPT 49320; principal; 2024-02-08 07:30)
DX: N80.3C3 Endometriosis of bilateral uterosacral ligament(s), unspecified depth (principal); K21.9 Gastro-esophageal reflux disease without esophagitis; Z98.890 Other specified postprocedural states; Z87.891 Personal history of nicotine dependence; Z79.891 Long term (current) use of opiate analgesic
CPT/HCPCS: 58662; A9270; J1100; J1885; J2003; J2250; J2405; J2704; J3010; J7030; J7120; Q9968

== ENCOUNTER 2024-06-25 17:21 | Emergency (ER) | payer BC, OTHER, SELFPAY ==
--- NOTE | ~2024-06-25 | US_ITS ---
EXAMINATION: US OB <= 14 weeks fetus INDICATION: lower abd cramping TECHNIQUE: Sonography of the pelvis was performed by transabdominal and transvaginal techniques. COMPARISON: None. RESULT: Uterus: 11.9 x 7.7 x 9.1 cm. Anteverted. Homogenous myometrium. Intrauterine gestational sac: Single present. Embryo: Single present. [place] rump length: 7.08 cm, corresponding gestational age 13 weeks, 2 days. Gestational heart rate: present 156 bpm. Subgestational hematoma: Absent . Right ovary: 3.7 x 3.1 x 2.9. No adnexal mass. Left ovary: Not visualized. No adnexal mass. Pelvis free fluid: None. IMPRESSION: Single, live intrauterine gestation. Estimated Gestational Age: 13 weeks, 2 days by crown rump length. MENDEL by ultrasound 12/29/2024. Reviewed, dictated and finalized at location K. IMPRESSION: Single, live intrauterine gestation. Estimated Gestational Age: 13 weeks, 2 days by crown rump length. MENDEL by ultra sound 12/29/2024.
[2024-06-25 17:23] VITALS: BP 129/82; PULSE 90; RESP 20; TEMP 36.7; O2SAT 100
--- OUTSIDE RECORDS SUMMARY | 2024-06-25 17:23 | XMS_ITS | Patient Health Record ---
Author Organization [facility] Address [address] [place] [address] Care Team Providers Care Supervisor Cigarette Making Department Name Role Phone Rylie Hawkins Primary Care Provider [phone] Bree Paris Unavailable [phone] Migration, Provider Unavailable Unavailable Allergies No Known Allergies Results Component Value Reference Range Flag Notes Outreach UA POC Reviewed date:11/09/2023 12:00:00 AM Interpretation: Performing Lab: Notes/Report: UA Appear Clear UA Bili Negative UA Blood Negative UA Color Yellow UA Glucose Negative UA Ketones Negative UA Leuk Est Negative UA Nitrite Negative UA Perform Location [place]CT [place] UA pH 6.0 UA Protein Negative UA Spec Grav 1.010 UA Urobilinogen 0.2 Urine Culture Reviewed date:11/09/2023 12:00:00 AM Interpretation: Performing Lab: Notes/Report: C Urine See Below Adrenocorticotropic Hormone [ACTH]-[facility] Reviewed date:01/08/2024 12:00:00 AM Interpretation: Performing Lab: Notes/Report: Adrenocort See Below Aldosterone, Serum-[facility]UP Reviewed date:01/08/2024 12:00:00 AM Interpretation: Performing Lab: Notes/Report: ALDOSTERONE See Below Cortisol Reviewed date:01/08/2024 12:00:00 AM Interpretation: Performing Lab: Notes/Report: Cortisol 8.9 mcg/dL DHEA Sulfate, Serum-ARUP Reviewed date:01/08/2024 12:00:00 AM Interpretation: Performing Lab: Notes/Report: DHEA Sulfa See Below Renin Activity-ARUP Reviewed date:01/08/2024 12:00:00 AM Interpretation: Performing Lab: Notes/Report: Renin See Below Ferritin Reviewed date:09/28/2023 12:00:00 AM Interpretation: Performing Lab: Notes/Report: Ferritin Lvl 10.5 ng/mL Hemoglobin A1c {Glycosylated } Reviewed date:09/28/2023 12:00:00 AM Interpretation: Performing Lab: Notes/Report: eAvg Glucose 105 mg/dL Hemoglobin A1c 5.3 % Iron Level and TIBC Reviewed date:09/28/2023 12:00:00 AM Interpretation: Performing Lab: Notes/Report: Iron Lvl 90 mcg/dL Iron Sat 20 % TIBC 441 mcg/dL Transferrin 315 mg/dL Vitamin D 25 Hydroxy Reviewed date:09/28/2023 12:00:00 AM Interpretation: Performing Lab: Notes/Report: Vitamin D 25 OH 32 ng/mL Beta Human Chorionic Gonadot ropin Quantitative Reviewed date:04/15/2024 09:40:40 PM Interpretation: Performing Lab: Notes/Report: Test Performed by: [place] [address] Game Engineer: Josiah Esposito DO HCG, Beta Quantitative 20.6 Serum HCG levels with gestational age: Gestational age HCG(mIU/mL) 0.2-1 Week 5-50 1-2 Weeks 50-500 2-3 Weeks 100-5000 3-4 Weeks 500-38231 4-5 Weeks 1000-94763 5-6 Weeks 45087-118449 6-8 Weeks 92888-518578 8-12 Weeks [id number] 2nd trimester 3000-55640 3rd trimester [phone] Males: < 5 mIU/mL Non- Females: <5 mIU/mL Postmenopausal Females: <10 mIU/mL The intended use of the B-HCG assay is the quantitative determination of the Human Chorionic Gonadotropin (HCG) in human serum for the early detection of . This assay should not be used to diagnose any condition unrelated to . If the result of this assay is inconsistent with clinical findings, please contact the laboratory for assistance. Adrenocorticotropic Hormone [ACTH]-[facility] Reviewed date:12/22/2023 12:00:00 AM Interpretation: Performing Lab: Notes/Report: Adrenocort See Below CBC w/ Diff Reviewed date:12/22/2023 12:00:00 AM Interpretation: Performing Lab: Notes/Report: Baso Absolute 0.1 x10*3/mcL Basophil Auto 1.2 % Eos Absolute 0.2 x10*3/mcL Eosinophil Auto 4.6 % Hct 38.6 % Hgb 13.0 g/dL Lymph Absolute 1.5 x10*3/mcL Lymph Auto 32.8 % MCH 29.2 pg MCHC 33.6 g/dL MCV 86.8 fL [place] Absolute 0.4 x10*3/mcL [place] Auto 9.3 % MPV 8.4 fL Neutro Absolute 2.4 x10*3/mcL Neutro Auto 52.1 % Platelets 233 K/mcL RBC 4.44 x10*6/mcL RDW 12.8 % WBC 4.6 K/mcL Comprehensive Metabolic Pane l Reviewed date:12/22/2023 12:00:00 AM Interpretation: Performing Lab: Notes/Report: Albumin Lvl 5.0 g/dL Albumin/Globulin Ratio 2.2 Alk Phos 45 unit/L ALT 16 unit/L ANION GAP 5.1 mmol/L AST 14 unit/L Bilirubin Total 0.4 mg/dL BUN 17 mg/dL Calcium Lvl 9.5 mg/dL Chloride Lvl 104 mmol/L CO2 29 mmol/L Creatinine Lvl 0.68 mg/dL eGFR CKD-EPI >90 mL/min/1.73 m2 Glucose Lvl 85 mg/dL Potassium Lvl 4.3 mmol/L Protein Total 7.3 g/dL Sodium Lvl 138 mmol/L Cortisol Reviewed date:12/22/2023 12:00:00 AM Interpretation: Performing Lab: Notes/Report: Cortisol 5.4 mcg/dL Ferritin Reviewed date:12/22/2023 12:00:00 AM Interpretation: Performing Lab: Notes/Report: Ferritin Lvl 19.8 ng/mL Follicle Stimulating Hormone Level Reviewed date:12/22/2023 12:00:00 AM Interpretation: Performing Lab: Notes/Report: FSH 9.2 mIU/mL IGF 1-[facility] Reviewed date:12/22/2023 12:00:00 AM Interpretation: Performing Lab: Notes/Report: IGF-1 See Below Luteinizing Hormone Reviewed date:12/22/2023 12:00:00 AM Interpretation: Performing Lab: Notes/Report: LH 7.6 mIU/mL Prolactin Reviewed date:12/22/2023 12:00:00 AM Interpretation: Performing Lab: Notes/Report: Prolactin 8.17 ng/mL T4 Free Reviewed date:12/22/2023 12:00:00 AM Interpretation: Performing Lab: Notes/Report: T4 Free 0.94 ng/dL Thyroid Peroxidase {TPO) Ab- [facility] Reviewed date:12/22/2023 12:00:00 AM Interpretation: Performing Lab: Notes/Report: TPO (Thyroid Peroxidase) See Below Thyroid Stimulating Hormone Reviewed date:12/22/2023 12:00:00 AM Interpretation: Performing Lab: Notes/Report: TSH 3.46 mcIU/mL Vitamin B12 Reviewed date:12/22/2023 12:00:00 AM Interpretation: Performing Lab: Notes/Report: Vitamin B12 Lvl 600 pg/mL Vitamin D 25 Hydroxy Reviewed date:12/22/2023 12:00:00 AM Interpretation: Performing Lab: Notes/Report: Vitamin D 25 OH 29 ng/mL Iron Level and TIBC Reviewed date:05/19/2024 05:51:55 PM Interpretation: Performing Lab: Notes/Report: LOCATION: [facility] Test Performed by: [place] [id number] Game Engineer: Josiah Esposito DO Iron Lvl 47 50-212 mcg/dL L LOCATION LOCATION: [facility] Transferrin 269 203-362 mg/dL LOCATION LOCATION: [facility] TIBC 377 250-420 mcg/dL LOCATION LOCATION: [facility] Iron Sat 12 20-55 % L LOCATION LOCATION: [facility] Vitamin D 25 Hydroxy Reviewed date:05/19/2024 05:51:55 PM Interpretation: Performing Lab: Notes/Report: LOCATION: [facility] Test Performed by: [address] [id number] Game Engineer: Josiah Esposito DO Vitamin D 25 OH 21 30-100 ng/mL L Vitamin D25 Interpretation: Deficient: <= 20 ng/mL Insufficient: 21-29 ng/mL Sufficient: 30-100 ng/mL Upper Safety Limit: >100 ng/mL LOCATION LOCATION: [facility] Ferritin Reviewed date:05/19/2024 05:51:55 PM Interpretation: Performing Lab: Notes/Report: LOCATION: [facility] Test Performed by: [address] [id number] Game Engineer: Josiah Esposito DO Ferritin Lvl 10.3 11.0-306.8 ng/mL L LOCATION LOCATION: [facility] Progesterone Level Reviewed date:04/15/2024 09:40:40 PM Interpretation: Performing Lab: Notes/Report: fax to [phone] Test Performed by: [place] [id number] Game Engineer: Josiah Esposito DO Progesterone Lvl 11.15 Progesterone Normal Ranges: Ovulatory cycle: Follicular: 0.14 - 2.03 ng/mL Midluteal: 5.16 - 18.56 ng/mL Luteal: 1.42 - 16.6 ng/mL Females: 4-6 weeks gestation 4.73 - 50.74 ng/mL 13-24 wks gestation 9.66 - 62.3 ng/mL 25-36 wks gestation 24.5 - 334 ng/mL Postmenopaual Females: 0.15 - 1.04 ng/mL Normal males: 0.14 - 2.06 ng/mL hCG,Beta Subunit,Qnt,Serum Reviewed date:04/18/2024 10:38:26 AM Interpretation: Performing Lab: Notes/Report: Iron Level and TIBC Reviewed date:06/05/2024 04:45:01 PM Interpretation: Performing Lab: Notes/Report: Test Performed by: [place] [id number] Game Engineer: Josiah Esposito DO Iron Lvl 88 50-212 mcg/dL Transferrin 290 203-362 mg/dL TIBC 407 250-420 mcg/dL Iron Sat 22 20-55 % CBC w Auto Diff Reviewed date:06/05/2024 04:45:01 PM Interpretation: Performing Lab: Notes/Report: Test Performed by: [place] [id number] Game Engineer: Josiah Esposito DO WBC 6.9 4.0-11.7 K/mcL RBC 4.60 3.80-5.41 x10*6/mcL Hgb 12.9 11.3-15.2 g/dL Hct 38.5 33.2-45.3 % MCV 83.8 79.5-98.1 fL MCH 28.0 27.0-34.2 pg MCHC 33.5 31.8-35.3 g/dL RDW 12.9 12.0-16.4 % Platelets 215 149-393 K/mcL MPV 8.8 7.0-11.0 fL Neutro Auto 71.8 45.3-79.0 % Lymph Auto 17.7 11.8-45.9 % [place] Auto 8.9 4.4-12.0 % Eosinophil Auto 1.0 0.0-6.3 % Basophil Auto 0.6 0.2-1.6 % Neutro Absolute 4.9 2.4-8.4 x10*3/mcL Lymph Absolute 1.2 0.8-3.7 x10*3/mcL [place] Absolute 0.6 0.3-1.1 x10*3/mcL Eos Absolute 0.1 0.0-0.5 x10*3/mcL Ferritin Reviewed date:06/05/2024 04:45:01 PM Interpretation: Performing Lab: Notes/Report: Test Performed by: [place] [id number] Game Engineer: Josiah Esposito DO Ferritin Lvl 14.3 11.0-306.8 ng/mL Aldosterone, Serum Reviewed date:02/20/2024 10:35:58 AM Interpretation:Normal Performing Lab: Notes/Report: Normal Insulin, Fasting Reviewed date:02/20/2024 10:36:13 AM Interpretation:Normal Performing Lab: Notes/Report: Normal Cortisol Reviewed date:02/20/2024 10:36:27 AM Interpretation:Normal Performing Lab: Notes/Report: Normal Reason For Referral Reason endometriosis, fatig ue Diagnosis 1 Hyperaldosteronism, unspecified (E26.9) Diagnosis 2 Elevated blood-press ure reading, without diagnosis of hypertension (R03.0) Diagnosis 3 Unspecified abdomina l pain (R10.9) Diagnosis 4 Other fatigue (R53.8 3) Diagnosis 5 Adverse effect of un specified hormones and synthetic substitutes, initial encounter (T38.805A) Referral Organization [facility] Medicine Referring Provider First Name Rylie Referring Provider Last Name Shruthi Referring Provider Speciality Nurse Prac titioner Referred Provider Specialty Endocrinolog y General Notes Elio Bedoya 2024 03:03:43 PM CEMENTER MACHINE >Per patient, she is going to wait on this. Referral Priority Routine Reason endometriosis Diagnosis 1 Hyperaldosteronism, unspecified (E26.9) Diagnosis 2 Dyskinesia of esopha franko (K22.4) Diagnosis 3 Acne, unspecified (L 70.9) Diagnosis 4 Endometriosis, unspe cified (N80.9) Diagnosis 5 Unspecified abdomina l pain (R10.9) Referral Organization [facility] Referring Provider First Name Rylie Referring Provider Last Name Yveskenneth Referring Provider Speciality Nurse Prac titioner Referred Provider Specialty Endocrinolog y General Notes Tahmina Cross 0 04/08/2024 09:33:43 AM CEMENTER MACHINE >Faxed referral to Dr. Ribeiro [phone] Kaitlin 06/03/2024 11:55:48 AM CDT >please check on this, if not following through can close this Clinical Notes Rosey Cox 04/05 10:29:23 AM CEMENTER MACHINE >Dr Isma [facility] Referral Priority Routine Medications Medication SIG (Take, Route, Frequency, Duration) Notes Start Date End Date Status Mag Glycinate 100 MG Tablet 500mg daily Orally 04/12/2024 Active Immunizations Vaccine Route Administration Date Status Comme nts Varicella Unknown 10/17/2005 Administered Source VFC Code: : Tdap IM Intramuscular 10/31/2012 Administered Source VFC Code: : Tdap IM Intramuscular 09/24/2020 Administered Source VFC Code: : Pneumococcal conjugate PCV 7 Unknown 01/11/2002 Administered Source VFC Code: : Pneumococcal conjugate PCV 7 Unknown 04/17/2002 Administered Source VFC Code: : Pneumococcal conjugate PCV 7 Unknown 08/27/2002 Administered Source VFC Code: : Pneumococcal conjugate PCV 7 Unknown 02/07/2003 Administered Source VFC Code: : Pfizer-Biontech Covid-19 Vaccine 1st dose Unknown 02/07/2020 Administered Source VFC Code: : Pfizer-Biontech Covid-19 Vaccine 1st dose IM Intramuscular 11/30/2020 Administered Source VFC Code: : Pfizer-Biontech Covid-19 Vaccine 1st dose IM Intramuscular 12/21/2020 Administered Source VFC Code: : MMR Unknown 10/17/2005 Administered Source VFC Code: : MMR Unknown 12/09/2005 Administered Source VFC Code: : Meningococcal MCV4P IM Intramuscular 11/20/2018 Administer ed Source VFC Code: : IPV Unknown 01/11/2002 Administered Source VFC Code: : IPV Unknown 04/17/2002 Administered Source VFC Code: : IPV Unknown 08/27/2002 Administered Source VFC Code: : IPV Unknown 10/17/2005 Administered Source VFC Code: : Influenza, quadrivalent (IIV4), split virus, 6-35 months dosage IM Intramuscular 11/30/2020 Administered Source VFC Code: : HPV9 (human papillomavirus), nonavalent IM Intramuscular 10/17/2020 Administered Source VFC Code: : Hib-Hep B Unknown 01/11/2002 Administered Source VFC Code: : Hib-Hep B Unknown 04/17/2002 Administered Source VFC Code: : Hep B, adult (2 dose schedule) IM Intramuscular 08/31/2023 Administered Source VFC Code: : Hep B, adolescent or pediatric (11-19), 3 dose schedule Unknown 02/07/2003 Administered Source VFC Code: : DTaP Unknown 01/11/2002 Administered Source VFC Code: : DTaP Unknown 04/17/2002 Administered Source VFC Code: : DTaP Unknown 08/27/2002 Administered Source VFC Code: : DTaP Unknown 10/17/2005 Administered Source VFC Code: : Problems Problem Type SNOMED Code ICD Code Onset Dates Problem Status W/U Status Risk Notes Problem Hyperaldosteronism (32300816) Hyperaldosteron ism, unspecified (E26.9) 01/08/20 24 Active confirmed Problem Anxiety disorder (942771460) Anxiety disorder, unspecified (F41.9) 09/14/19 24 Active confirmed Problem Dissociative disorde r (17021527) Dissociative and conversion disorder, 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) 12/15/19 24 Active confirmed Problem Dyskinesia of esophagus (47927708) 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) 01/08/20 24 Active confirmed Problem Acne (57191013) Acne, unspecified (L70.9) 09/14/19 24 Active confirmed Problem Urinary tract infectious disease (disorder) (82049974) Urinary tract infection, site not specified (N39.0) 11/07/19 24 Active confirmed Problem Endometriosis (953753921) Endometriosis, unspecified (N80.9) 12/15/19 24 Active confirmed Problem Elevated blood pressure reading without diagnosis of hypertension (795143703) Elevated blood-pressure reading, without diagnosis of hypertension (R03.0) 01/08/20 24 Active confirmed Problem Abdominal pain (18933554) Unspecified abdominal pain (R10.9) 11/08/20 24 Active confirmed Problem Dizziness and giddiness (338979059) Dizziness and giddiness (R42) 12/15/19 Active confirmed Problem Fatigue (99654929) Other fatigue (R53.83) 12/15/19 Active confirmed Problem Blood chemistry abnormal (989371478) Other specified abnormal findings of blood chemistry (R79.89) 12/22/19 Active confirmed Problem Adverse effect of unspecified hormones and synthetic substitutes, initial encounter (T38.805A) 12/15/19 Active confirmed Problem Breast lump (88420400) Unspecified lump in unspecified breast (N63.0) 09/14/19 Active confirmed Problem Depression (007278777) Depression, unspecified (F32.A) 09/14/19 Active confirmed Problem Vitamin D deficiency (72537104) Vitamin D deficiency (E55.9) Active confirmed Vital Signs Heart Rate 97 /min 06/05/2024 Temperature 98.3 degrees Fahrenheit 06/05/2024 Respiratory Rate 20 /min 02/15/2024 Height-cm 165.1 cm 06/05/2024 Blood pressure diastolic 78 mm Hg 06/05/2024 Oximetry 99 % 06/05/2024 Weight-kg 76.02 kg 06/05/2024 Height 65.00 in 06/05/2024 Blood pressure systolic 130 mm Hg 06/05/2024 Weight 167.6 lbs 06/05/2024 BMI 27.89 kg/m2 06/05/2024 Encounters Encounter Location Date Provider Diagnosis [address] [address] 08/31/2023 Provider Migration [address] [address] 09/14/2023 Rylie Hawkins Anxiety disorder, unspecified F41.9 ; Acne, unspecified L70.9 ; Unspecified lump in unspecified breast N63.0 and Depression, unspecified F32.A [address] [address] 11/07/2023 Provider Migration Urinary tract infection, site not specified N39.[address] [address] 12/15/2023 Rylie Beckert Urinary tract infection, site not specified N39.0 ; Adverse effect of unspecified hormones and synthetic substitutes, initial encounter T38.805A ; Other fatigue R53.83 ; Endometriosis, unspecified N80.9 ; Anxiety disorder, unspecified F41.9 ; Dissociative and conversion disorder, unspecified F44.9 ; Dizziness and giddiness R42 ; Unspecified abdominal pain R10.9 and Acne, unspecified L70.[address] [address] 12/22/2023 Provider Migration Other fatigue R53.83 ; Other specified abnormal findings of blood chemistry R79.89 and Unspecified abdominal pain R10.[address] [address] 01/08/2024 Rylie Hawkins Elevated blood-pressure reading, without diagnosis of hypertension R03.0 ; Other fatigue R53.83 ; Endometriosis, unspecified N80.9 ; Dyskinesia of esophagus K22.4 and Hyperaldosteronism, unspecified E26.[address] [address] 02/15/2024 Rylie Hawkins Weight gain R63.5 ; Elevated aldolase level R74.8 ; Low serum cortisol level R79.89 ; Endometriosis, unspecified N80.9 and Anxiety disorder, unspecified F41.[address] [address] 06/05/2024 Bree Paris Other fatigue R53.83 ; History of anemia Z86.2 ; Iron deficiency E61.1 and Vitamin D deficiency E55.[address] [address] 01/06/2024 Provider Migration [address] [address] 01/07/2024 Provider Migration [address] [address] 02/19/[address] [address] 02/19/[address] [address] 04/12/[address] [address] 04/15/2024 Rylie Beckert Positive test Z32.01 [facility] [address] [place] [address] 04/17/2024 Rylie Beckert Positive test Z32.01 Assessments Encounter Date Diagnosis (ICD Code) Assessment Notes Treatment Notes Treatment Clinical Notes Section Notes 04/17/2024 Positive test (ICD-10 - Z32.01) 02/15/2024 Weight gain (ICD-10 - R63.5) - Increased caloric intake and weight gain noted. Possible emotional or habitual eating post-Wellbutrin cessation and vaping cessation.- Consider cutting out nighttime snacking and maintaining a healthy BMI for potential .- Encourage a balanced diet with healthy food choices and regular physical activity to manage weight. -Checking fasting insulin and cortisol levels. 02/15/2024 Elevated aldolase level (ICD-10 - R74.8) Will recheck aldosterone level to make sure it is in normal range, if thes labs are abnormal then will refer to endocrinology. 09/14/2023 Anxiety disorder, unspecified (ICD-10 - F41.9) 09/14/2023 Acne, unspecified (ICD-10 - L70.9) 09/14/2023 Unspecified lump in unspecified breast (ICD-10 - N63.0) 09/14/2023 Depression, unspecified (ICD-10 - F32.A) 06/05/2024 Other fatigue (ICD-10 - R53.83) - Iron saturation at 12% a few weeks ago and mild iron deficiency noted. Previous iron levels dropped from over 100 to 40 within two weeks.- CBC, iron level with TIBC, and ferritin tests ordered today for recheck.- Consideration of iron supplementation with 60 to 120 mg daily or IV infusion based on test results.- Contingency plan includes monitoring iron levels closely and adjusting treatment as necessary. - Continue with Vitamin D supplementation of 50,000 IU weekly. Monitoring of Vitamin D levels every 3-6 months. - High-risk due to endometriosis.- Recommendation to consider [facility] for care due to high-risk status. 06/05/2024 History of anemia (ICD-10 - Z86.2) 01/08/2024 Hyperaldosteroni sm, unspecified (ICD-10 - E26.9) 01/08/2024 Dyskinesia of esophagus (ICD-10 - K22.4) 01/08/2024 Endometriosis, unspecified (ICD-10 - N80.9) 01/08/2024 Elevated blood-pressure reading, without diagnosis of hypertension (ICD-10 - R03.0) 01/08/2024 Other fatigue (ICD-10 - R53.83) 12/22/2023 Unspecified abdominal pain (ICD-10 - R10.9) 12/22/2023 Other fatigue (ICD-10 - R53.83) 12/22/2023 Other specified abnormal findings of blood chemistry (ICD-10 - R79.89) 12/15/2023 Anxiety disorder, unspecified (ICD-10 - F41.9) 12/15/2023 Dissociative and conversion disorder, unspecified (ICD-10 - F44.9) 12/15/2023 Acne, unspecified (ICD-10 - L70.9) 12/15/2023 Urinary tract infection, site not specified (ICD-10 - N39.0) 12/15/2023 Endometriosis, unspecified (ICD-10 - N80.9) 12/15/2023 Unspecified abdominal pain (ICD-10 - R10.9) 12/15/2023 Dizziness and giddiness (ICD-10 - R42) 12/15/2023 Other fatigue (ICD-10 - R53.83) 12/15/2023 Adverse effect of unspecified hormones and synthetic substitutes, initial encounter (ICD-10 - T38.805A) 04/15/2024 Positive test (ICD-10 - Z32.01) 11/07/2023 Urinary tract infection, site not specified (ICD-10 - N39.0) 02/15/2024 Low serum cortisol level (ICD-10 - R79.89) Had 1 abnormal cortisol level and repeat levels have been good. Will recheck again today. 06/05/2024 Iron deficiency (ICD-10 - E61.1) 06/05/2024 Vitamin D deficiency (ICD-10 - E55.9) 02/15/2024 Endometriosis, unspecified (ICD-10 - N80.9) She has been diagnosed w/endometriosis by 2 different filter press supervisor with exploratory lap. -She is considering starting a family now with this new diagnosis. -She has a follow-up with Dr. Puja Gonzalez on 03/03/24 and will discuss all concerns w this. She may benefit talking with a fertility specialist 02/15/2024 Anxiety disorder, unspecified (ICD-10 - F41.9) - Underlying anxiety possibly affecting daily life. -She is taking a break from all medication at this time in anticipation of starting a family - Consider counseling or therapy to manage anxiety without medication.- Encourage finding a therapist who can provide strategies for managing anxiety and improving overall mental health. 02/15/2024 Other She inquired ab out Transport Manager syndrome, but advised that would have abnormal kidney labs over time. She has had imaging of of abdomen and didn't show any concerns for kidney. However tno imaging of renal veins or arteries were done. Plan Of Treatment Pending Test Test Name Order Date HCG Qualitative Serum 04/17/2024 Next Appt Details Provider Name:Rylie schrader, 03/25/2025 11:15:00 AM, [address], [place], [address], [phone] Insurance Providers Payer Name Payer Address Payer Phone Subscriber Number Group Number Insured Name Patient Relationship to Insured Coverage Start Date Coverage End Date Cigna [address] [place] [address] [id number] Josiah Weiner Child - Insured has Financial Responsibility BCBSIL [address] [place] [address] [id number] Milagro Robles Self - patient is the insured Medical (General) History Medical History History ICD Code Endometriosis Surgical History Surgery Date(Month/Year) tonsillectomy (3130F) UPPER GI ENDOSCOPY P ERFORMED ,notes : 04/2023 - Dx: Chronic Reactive Gastritis [place] teeth surgery adenoidectomy Laparotomy, exploratory ,notes : SOGA. D x: Endometriosis 11/28/2023 Colonoscopy 01/19/24 normal; biopsies teressa Delong exploratory laparoscopy 02/08/2024
--- OUTSIDE RECORDS SUMMARY | 2024-06-25 17:23 | XMS_ITS | Encounter Summary ---
Author Organization [facility] Healthcare Address [address] [place] [address] Care Team Providers Care Teacher Learning Disabled Name Role Phone No, Physician Primary Care Provider Rylie Hawkins NP Primary Care Provider Reason for Visit * Reason Onset Date Comments Med Refill 06/07/2018 Encounter Details Date Type Department Care Team (Late st Contact Info) Description 06/07/2018 Telephone [facility] at [address] [place] [id number] Liliam Thomas M.A. Med Refill Social History Tobacco Use Types Packs/Day Years Used Date Smoking Tobacco: Never Assessed Comments Unknown Sex and Gender Information Value Date Recorded Sex Assigned at Not on file Legal Sex Female 4:08 PM CDT Gender Identity Not on file Sexual Orientation Not on file documented as of this encounter Plan of Treatment Not on file documented as of this encounter Visit Diagnoses Not on filedocumented in this encounter Care Teams Teacher Learning Disabled Relationship Specialty Start Date End Date No, Physician PCP - General 11/14/17 12/21/23 Rylie Hawkins NP [address] [place] [address] PCP - General Family Medicine 12/22/23 documented as of this encounter
--- OUTSIDE RECORDS SUMMARY | 2024-06-25 17:23 | XMS_ITS | Continuity of Care Document ---
Author Organization [facility] Address [address] [place] [address] [address] [place] [address] Phone Care Team Providers Care Student Accounts Manager Name Role Phone Morris PT,MPT,ATC, Jordan Unavailable Unavai lable Procedures Procedure Date Therapeutic Activities Neuromuscular Re-Ed Therapeutic Activities Neuromuscular Re-Ed Therapeutic Activities Neuromuscular Re-Ed Therapeutic Activities Neuromuscular Re-Ed Therapeutic Activities Neuromuscular Re-Ed Therapeutic Exercise Therapeutic Activities Neuromuscular Re-Ed Therapeutic Exercise Therapeutic Activities Neuromuscular Re-Ed Therapeutic Exercise Therapeutic Exercise Therapeutic Activities Manual Therapy Neuromuscular Re-Ed Neuromuscular Re-Ed Manual Therapy Therapeutic Exercise Therapeutic Activities Therapeutic Activities Neuromuscular Re-Ed Manual Therapy Therapeutic Exercise Therapeutic Activities Hot or Cold Pack Neuromuscular Re-Ed Manual Therapy Therapeutic Activities Neuromuscular Re-Ed Therapeutic Exercise Manual Therapy Therapeutic Activities PT Evaluation Moderate Complexity Neuromuscular Re-Ed Advance Directives Directive Yes / No Effective Date File Name No Information Encounters Encounter Description Practice Location Reason(s) For Visit Diagnoses Date Provider Providers Copied on Encounter [facility], [place], [place], [id number], tel:[phone] Lin[place] No Information May- 2 Arturo Funes , [place], [place]. Referring Provider: Lelia Hines7 N [facility], [place], [address]. tel:[phone] [facility], [place], [place], [address], [place] tel:[phone] [place] No Information 2 Arturo [place] , [place], [place]. Referring Provider: Lelia Hines7 N [facility], [place], [address]. tel:[phone] [facility] [address], [place], [place], [address], [place] tel:[phone] Lin[place] No Information 2 Arturo [place] , [place], [place]. Referring Provider: Pooja Hines N [facility], [place], [address]. tel:[phone] [facility], [place], [place], [id number], [place] tel:[phone] [place] No Information 2 Arturo [place] , [place], [place]. Referring Provider: Lelia Hines7 N [facility], [place], [address]. tel:[phone] [facility], [place], [place], [id number], [place] tel:[phone] Lin[place] No Information 2 Otonielloidabala Raymundo. . Referring Provider: Pooja Hines N [facility], [place], [address]. tel:[phone] [facility], [address], [place], [place], [address], [place] tel:[phone] Lin[place] No Information 2 Luis Manuel Sainz. . Referring Provider: Pooja Hines N [facility], [place], [address]. tel:[phone] [facility] [address], [place], [place], [id number], [place] tel:[phone] [place] No Information 2 Arturo [place] , [place]. Referring Provider: Pooja Hines [facility], [place], [address]. tel:[phone] [facility] [address], [place], [place], [address], [place] tel:[phone] [place] No Information 2 Arturo [place]. Referring Provider: Pooja Hines [facility], [place], [address]. tel:[phone] [facility] [address], [place], [place], [address], [place] tel:[phone] [place] No Information 2 Arturo [place] , [place]. Referring Provider: Pooja Hines N [facility], [place], [address]. tel:[phone] [facility] [address], [place], [place], [id number], [place] tel:[phone] [place] No Information Apr- 2 [place] Referring Provider: Lelia Hines7 N [facility], [place], [address]. tel:[phone] [facility] [address], [place], [place], [id number], tel:[phone] Lin[place] No Information 2 Willam Padilla. . Referring Provider: Lelia Hines7 N [facility], [place], [address]. tel:[phone] [facility] [address] [place] [address], [id number], tel:[phone] [place] No Information 2 [place]. Referring Provider: Pojoa Hines N [facility], [place], [address]. tel:[phone] [facility] [address] [place] [address], [id number], tel:[phone] [place] No Information 2 [place]. Referring Provider: Pooja Hines N [facility], [place], [address]. tel:[phone] Family History Family Member Type Diagnosis Age At Onset No Information Payers Payer name Insurance type Covered alliance party ID Authorewafabiana dominicstephen(s) Slick ASHLEY [id number] [facility] [id number] Social History Type Description Quantity Date Captured Comments Sex Female Smoking Status No Information Chief Complaint And Reason For Visit No Information Reason For Referral Reason For Referral No Information History Of Present Illness Encounter Date Complaint History Of Prese nt Illness No Information Functional Status Date Functional Assessmen t No Information Instructions Date Instruction Additional Infor mation Giving encouragement to exercise Related to Overweight Giving encouragement to exercise Related to Overweight Assessments Type Assessment Date No Information Patient Care Teams Name Effective Dates (start - stop) Status Members No Information
--- OUTSIDE RECORDS SUMMARY | 2024-06-25 17:23 | XMS_ITS | Referral Summary ---
Author Organization [place] [id number] [facility] Address [address] [place] [address] Care Team Providers Care Grease Refiner Operator Name Role Phone Rylie Hawkins NP Primary Care Provider Allergies No known active allergies Medications buPROPion XL (WELLBUTRIN XL) 300 mg 24 hr tablet Take 1 tablet (300 mg total) by mouth paper tube grader before breakfast 3 Active spironolactone (ALDACTONE) 25 mg tablet Take 1 tablet (25 mg total) by mouth daily Active nortriptyline (PAMELOR) 10 mg capsule Take 1 capsule (10 mg total) by mouth nightly Active omeprazole (PriLOSEC) 40 mg capsule Take 1 capsule (40 mg total) by mouth daily Active Social History Tobacco Use Types Packs/Day Years Used Date Smoking Tobacco: Every Day Cigarettes Tobacco Cessation:Ready to Q uit: Not Asked; Counseling Given: Not Answered Personal Safety Answer Date Recorded Have you ever been in or are you currently in a harmful physical or emotional relationship or is someone making you feel afraid or unsafe? Denies 12/27/2023 Comments Unknown Sex and Gender Information Value Date Recorded Sex Assigned at Not on file Legal Sex Female 4:08 PM CDT Gender Identity Not on file Sexual Orientation Not on file Last Filed Vital Signs Vital Sign Reading Time Taken Comments Blood Pressure 120/79 12/27/2023 12:28 PM RETAIL DEPARTMENT RESET Pulse 87 12/27/2023 12:28 PM RETAIL DEPARTMENT RESET Temperature 36.8 C (98.3 F) 09/08/2017 4:04 PM CDT Respiratory Rate 16 12/27/2023 12:28 PM RETAIL DEPARTMENT RESET Oxygen Saturation 95% 09/08/2017 4:04 PM CDT Inhaled Oxygen Concentration - - Weight 63.5 kg (140 lb) 09/08/2017 4:04 PM CDT Height 165.1 cm (5' 5 ) 09/08/2017 4:04 PM CDT Body Mass Index 23.3 09/08/2017 4:04 PM CDT Plan of Treatment Not on file Insurance PedidosYa / PedidosJá OOS CIGNA PedidosYa / PedidosJá OOS AETNA SIG [id number] Care Teams Grease Refiner Operator Relationship Specialty Start Date End Date Rylie Hawkins NP [address] [place] [address] PCP - General Family Medicine 12/22/23
--- OUTSIDE RECORDS SUMMARY | 2024-06-25 17:23 | XMS_ITS | Clinical Summary ---
Author Organization [facility] Address [address] [facility] [place] [address] Care Team Providers Care Title Clerk Automobile Name Role Phone Unavailable Primary Care Provider Unavailabl e Source Comments [facility],non-owned Affiliates and Associated Physician Practices is amultiple site organization consisting of ambulatory clinics and hospital sitesin [place], [place], [place] and [place]. This disclosure is being madepursuant to the Care Everywhere program and may not contain all information available regarding this patient. Last updated 17.[facility] Active Problems Problem Noted Date Diagnosed Date Abnormal chromosomal and gen etic finding on screening of mother 06/18/2024 Estimated Date of Delivery Comme nts Yes 12/25/2024 Based on last me nstrual period of 03/20/2024 Encounters Date Type Department Care Team Description 06/18/2024 7:59 AM CDT - 06/18/2024 11:59 PM CDT Hospital Encounter [facility]/ [facility]ATION UN[facility] [address] [place] [address] Ryan Hoyt MD Discharge Disposition: Home or Self Care 06/18/2024 7:56 AM CDT - 06/18/2024 7:58 AM CDT Hospital Encounter [facility] UN[facility] [address] [place] [address] Ryan Hoyt MD Discharge Disposition: Home or Self Care 06/18/2024 Travel 06/11/2024 Telephone [facility]/ EVALUATION UNIT [address] [place] [address] Dunajcik, Yomaira S, medical unit secretary from Last 3 Months Social History Tobacco Use Types Packs/Day Years Used Date Smoking Tobacco: Never Assessed Estimated Date of Delivery Comme nts Yes 12/25/2024 Based on last me nstrual period of 03/20/2024 Sex and Gender Information Value Date Recorded Sex Assigned at Not on file Legal Sex Female 7:05 AM CDT Gender Identity Not on file Sexual Orientation Not on file Plan of Treatment Upcoming Encounters Date Type Department Care Team (Late st Contact Info) Description 07/03/2024 8:15 AM CDT Appointment [facility]/ EV[facility]UATION UNIT [address] [facility] [place] [address] 07/03/2024 9:00 AM CDT visit [facility] - DINING ROOM CAPTAIN [address] [facility] [address] [place] [address] 07/10/2024 2:30 PM CDT [facility] [address] [facility] [place] [address] Lawrence Huertas MD [address] [place] [address] 07/11/2024 9:00 AM CDT Appointment [facility]/ EV[facility]UATION UNIT [address] [facility] [place] [address] Health Maintenance Due Date Last Done Comments PAP SMEAR 2001 HIV SCREENING 2016 HPV VACCINE (1 - 3-dose series) 2016 CHLAMYDIA/GONORRHEA SCREENING 2017 MENINGOCOCCAL (Group B) VACCINE SHARED DECISION-MAKING (1 of 2 - Standard) 2017 HEPATITIS C SCREENING 09/03/2019 DTAP/TDAP/TD VACCINES (1 - Tdap) 2020 HEPATITIS B VACCINE (1 of 3 - 19+ 3-dose series) 2020 COVID-19 VACCINE (4 - 2023-2 5 season) 2023 12/21/2020, 11/30/2020, 02/07/2020 DEPRESSION SCREENING 02/07/2024 INFLUENZA VACCINE (Season Ended) 2024 11/30/2020 Respiratory Syncytial Virus (RSV) Vaccine Pt: or over 60 yrs (1 - Risk 1-dose series) 10/30/2024 ZOSTER VACCINE (1 of 2) 09/08/2051 HIB VACCINE Aged Out No longer eligi ble based on patient's age to complete this topic MENINGOCOCCAL GROUPS A/C/Y/W VACCINE Aged Out No longer eligible b ased on patient's age to complete this topic PNEUMOCOCCAL VACCINE Aged Out No long er eligible based on patient's age to complete this topic Procedures Procedure Name Priority Date/Time Associated Diagnosis Comments SONOGRAM - COMPLETE Routine 06/18/2024 8 :59 AM CDT Abnormal genetic test during from Last 3 Months Results * SONOGRAM - COMPLETE (06/18/2024 8:59 AM CDT) Linked Results Indication ======== High risk T21 on NIPS History ====== OB History 1. Para 0 Lab Tests Test Date Result NIPT Positive for Trisomy 21 Maternal Assessment Physical Exam Height 165 cm, 5 ft 5 in. Weight 68 kg, 149 lb. Initial weight 68 kg, 149 lb. BMI 24.80 kg/m . Initial BMI 24.80 kg/m . Weight gain 0 kg, 0 lb Method ====== Transabdominal ultrasound. View: Suboptimal view: limited by position ========= Rodriguez . Number of fetuses: 1 Dating ====== Date Details Gest. age MENDEL LMP 03/20/2024 12 w + 6 d 12/25/2024 U/S 06/18/2024 based upon CRL 13 w + 1 d 12/23/2024 Assigned dating based on the LMP, selected on 06/18/2024 12 w + 6 d 12/25/2024 General Evaluation Cardiac activity present Amniotic fluid: subjectively low Biometry FHR 165 bpm CRL 68.2 mm 13w 1d 59% Hadlock NT 9.00 mm Anatomy The following structures appear abnormal: Neck: cystic hygroma seen. The following structures could not be adequately visualized: Face. Stomach. Kidneys. Bladder. Spine. The following structures were visualized: Cranium. Heart. Arms. Legs. Maternal Structures Right Ovary Visualized Left Ovary Not visualized Impression ========= Single, live, intrauterine at 12w 6d The nuchal translucency measures 9 mm - which is abnormal. Large cystic hygroma is seen on scan today extending from the cranial to caudal end of the embryo. These findings were discussed with the patient, including options for definitive aneuploidy testing - including CVS and amniocentesis. Patient would like to reconvene at the next scan to decide further. Comment ======== ultrasound alone cannot detect all structural, genetic, or functional , placental, or maternal abnormalities, ultrasound alone cannot detect all structural, genetic, or functional , placental, or maternal abnormalities Follow-up ======== Follow up ultrasound in 4 weeks for early anatomic survey and amniocentesis, if so desired by the patient Coding ====== Procedures 36723: 1st Trimester 22491: Nuchal Translucency redictAd PACS Anatomical Region Laterality Modality Other 06/18/2024 8:59 AM CDT us Ordering Provider Unlisted MD MEJIA ORDERABLES Ed ited Result - Final from Last 3 Months Insurance ANTHEM CIGNA * Guarantor: DELPHINE JEAN BAPTISTE Account Type Relation to Patient Date of Phone Billing Address Personal/Family Spouse
--- OUTSIDE RECORDS SUMMARY | 2024-06-25 17:23 | XMS_ITS | Clinical Summary ---
Author Organization [place] [id number] [facility] Address [address] [place] [address] Care Team Providers Care Color Coater Name Role Phone Rylie Hawkins NP Primary Care Provider Allergies No known active allergies Medications buPROPion XL (WELLBUTRIN XL) 300 mg 24 hr tablet Take 1 tablet (300 mg total) by mouth leaf sticker before breakfast 3 Active spironolactone (ALDACTONE) 25 mg tablet Take 1 tablet (25 mg total) by mouth daily Active nortriptyline (PAMELOR) 10 mg capsule Take 1 capsule (10 mg total) by mouth nightly Active omeprazole (PriLOSEC) 40 mg capsule Take 1 capsule (40 mg total) by mouth daily Active Surgical History Surgery Date Site/Laterality Comments TONSILLECTOMY WISDOM TOOTH EXTRACTION UPPER GASTROINTESTINAL ENDOSCOPY EXPLORATORY LAPAROTOMY Medical History Medical History Date Comments GERD (gastroesophageal reflux disease) Endometriosis Social History Tobacco Use Types Packs/Day Years [...] on file Sexual Orientation Not on file Obstetrics History Last Filed Vital Signs Vital Sign Reading Time Taken Comments Blood Pressure 120/79 12/27/2023 12:28 PM DEPUTY FIRE MARSHAL Pulse 87 12/27/2023 12:28 PM DEPUTY FIRE MARSHAL Temperature 36.8 C (98.3 F) 09/08/2017 4:04 PM CDT Respiratory Rate 16 12/27/2023 12:28 PM DEPUTY FIRE MARSHAL Oxygen Saturation 95% 09/08/2017 4:04 PM CDT Inhaled Oxygen Concentration - - Weight 63.5 kg (140 lb) 09/08/2017 4:04 PM CDT Height 165.1 cm (5' 5 ) 09/08/2017 4:04 PM CDT Body Mass Index 23.3 09/08/2017 4:04 PM CDT Plan of Treatment Health Maintenance Due Date Last Done Comments Cervical Cancer Screening 2001 Depression Screening 2001 Hepatitis C Screening 2001 Varicella Vaccines (2 of 2 - 2-dose childhood series) 01/09/2006 10/17/2005 Pneumococcal vaccine <65 (1 of 1 - PPSV23) 09/08/2007 02/07/2003, 08/27/2002, 04/17/2002, Additional history exists Meningococcal B Vaccine (1 o f 2 - Standard) 2017 Regular Well Visit/Exam 18-64 09/08/2019 HPV Vaccines (2 - 3-dose series) 11/14/2020 10/18/19 21 Covid-19 Vaccine ( - 2023-2 5 season) 2023 12/21/2020, 11/30/2020, 02/07/2020 Influenza Vaccine (#1) 2023 11/30/2020 DTaP/Tdap/Td Vaccine (7 - Td or Tdap) 09/24/2030 09/24/2020, 10/31/2012, 10/17/2005, Additional history exists Hepatitis B Screening Completed 08/31/2023 , 02/07/2003, 04/17/2002, Additional history exists Insurance [employer] OOS CIGNA BLUE [employer] OOS AETNA SIG [id number] Care Teams Color Coater Relationship Specialty Start Date End Date Rylie Hawkins NP [address] [place] [address] PCP - General Family Medicine 12/22/23
--- NOTE | 2024-06-25 19:09 | ED_ITS ---
HPI - Abdominal Pain General Chief Complaint: Abdominal Pain Stated Complaint: 14 weeks -abdominal cramping Time Seen by Provider: 06/25/24 18:35 History of Present Illness HPI narrative: 23-year-old female who is , currently 14 weeks , presents to the emergency department for suprapubic cramping that started this morning. Patient states her OBGYN is Dr. Fisher, however she was recently referred to [facility] due to recently finding out her fetus has findings concerning for down syndrome. She states she was told that she is high risk for miscarriage and so she develops any vaginal cramping or bleeding to go to the ED. she denies any vaginal bleeding, fever, vomiting, vaginal discharge or concern for STDs, leakage of fluids, dysuria or hematuria. Related Data Allergies Allergy/AdvReac Type Severity Reaction Status Date / Time No Known Allergies Allergy Verified 06/25/24 17:21 Review of Systems 2 Review of Systems: All systems reviewed & are unremarkable except as noted in HPI and below PMFSH Past Medical History Medical History GERD (gastroesophageal reflux disease) Epigastric pain Abdominal bloating Nausea Patient denies medical problems No active medical problems Surgical History Surgical History [place] teeth removed No history of previous surgery Family History Family History Mother No problems noted. Social History Social History Smoking status: Never smoker Tobacco type: e-cigarettes/vaping Additional smoking assessment comments: quit vaping. Alcohol intake: current Drinks per week: 2 Alcohol use details: socially Substance use: never Substance use type: does not use Living arrangements: with family Gender identity (if verbalized by the patient): Female Spiritual care concerns: No Exam 2 Narrative: GENERAL: Well-appearing, well-nourished, and in no acute distress. HEAD: Normocephalic, atraumatic. EYES: EOMI. ENT: Nares clear, no rhinorrhea or epistaxis. Mucous membranes moist. NECK: Supple. CHEST: Clear to auscultation. No respiratory distress. HEART: Regular rate and rhythm. No murmur heard. Normal peripheral pulses. ABDOMEN: Palpable uterus inferior to the umbilicus with mild tenderness in the suprapubic region. No rebound rigidity. No CVA tenderness EXTREMITIES: Normal range of motion. No edema. SKIN: Warm, dry, no rash. NEURO: No focal deficits. Alert and oriented x3 Course Vital Signs Vital signs: Vital Signs Temperature 98.1 F 06/25/24 17:23 Pulse Rate 90 06/25/24 17:23 Respiratory Rate 20 06/25/24 17:23 Blood Pressure 129/82 06/25/24 17:23 Pulse Oximetry 100 06/25/24 17:23 Oxygen Delivery Room Air 06/25/24 17:23 Temperature 98.1 F 06/25/24 17:23 Pulse Rate 90 06/25/24 17:23 Respiratory Rate 20 06/25/24 17:23 Blood Pressure 129/82 06/25/24 17:23 Pulse Oximetry 100 06/25/24 17:23 Oxygen Delivery Room Air 06/25/24 17:23 MDM - Abdominal Pain MDM Narrative Medical decision making narrative: 23-year-old female who is currently 14 weeks , , high risk due to the findings concerning for down syndrome presents to the emergency department for suprapubic abdominal cramping that started this afternoon. See HPI for further history. Triage vitals are stable. Patient is afebrile nontoxic appearing. Exam is significant for the above. CBC without leukocytosis or anemia. Chemistries are unremarkable. UA without infection. Rh factor positive, RhoGAM not require. US IMPRESSION: Single, live intrauterine gestation. Estimated Gestational Age: 13 weeks, 2 days by crown rump length. MENDEL by ultrasound 12/29/2024. Patient updated on results. She remains resting comfortably in exam bed and is reassured by today's findings. Advised to follow-up with her OBGYN and discussed strict ED return precautions. She is agreeable with the plan verbalized understanding. Discharged in stable condition. Lab Data 06/25/24 19:55 06/25/24 19:55 Labs: Lab Results 06/25/24 Range/Units 19:55 WBC 7.5 (4.5-10.0) K/mm3 RBC 4.37 (4.2-5.4) M/mm3 Hgb 12.2 (12.0-15.0) g/dL Hct 37.1 (37.0-47.0) % MCV 84.9 (80-100) fl MCH 27.9 (26-34) pg MCHC 32.9 (32-36) g/dl RDW 12.6 (11.5-14.5) % Plt Count 203 (150-375) k/mm3 MPV 10.0 (7.4-10.4) fl Immature Gran % (Auto) 0.1 (0-0.5) % Neut % (Auto) 66.5 (45.5-73.1) % Lymph % (Auto) 22.0 (18.3-44.2) % Webb % (Auto) 10.1 H (2.6-8.5) % Eos % (Auto) 0.9 (0-4.4) % Baso % (Auto) 0.4 (0.2-1.2) % Lymph # (Auto) 1.65 (0.9-3.2) K/mm3 Webb # (Auto) 0.8 H (0.1-0.6) K/mm3 Eos # (Auto) 0.1 (0-0.3) K/mm3 Baso # (Auto) 0.0 (0.0-0.1) K/mm3 Abs Immat Gran (auto) 0.01 (0.00-0.031) K/mm3 Absolute Neuts (auto) 5.0 (1.3-6.7) K/mm3 Absolute Nucleated RBC 0.000 (0.0-0.012) K/mm3 Nucleated RBC % 0.0 (0.0-0.2) % PT 13.3 (11.1-14.7) Seconds INR 1.0 APTT 28.2 (22.3-36.8) Seconds Sodium 136 L (137-145) mmol/L Potassium 4.0 (3.4-5.0) mmol/L Chloride 105 (98-107) mmol/L Carbon Dioxide 23 (22-30) mmol/L Anion Gap 8 (4-12) mmol/L BUN 7 D (7-17) mg/dL Creatinine 0.45 L (0.7-1.0) mg/dL Estim Creat Clear Calc 172 ml/min Estimated GFR > 60 (59 - ) Glucose 86 (65-110) mg/dL Calcium 9.3 (8.4-10.2) mg/dL Total Bilirubin 0.3 (0.2-1.3) mg/dL AST 24 (14-36) U/L ALT 18 (6-35) U/L Alkaline Phosphatase 53 (38-126) U/L Total Protein 7.0 (6.3-8.2) g/dL Albumin 4.4 (3.5-5.1) g/dL Beta HCG, Quant 231552.00 mIU/ML Urine Color Yellow (Yellow) Urine Appearance Clear (Clear) Urine pH 7.5 (5.0-9.0) Ur Specific [place] 1.007 (1.001-1.035) Urine Protein Negative (Negative) mg/dL Urine Glucose (UA) Negative (Negative) mg/dL Urine Ketones Negative (Negative) mg/dL Ur Blood (Man) Negative (Negative) Urine Nitrate Negative (Negative) Urine Bilirubin Negative (Negative) Urine Urobilinogen 0.2 (<2.0) mg/dL Leukocyte Esterase Rfl Negative (Negative) FAYE/UL Blood Type A Positive Antibody Screen Negative Screen Not Reportable Baby's Blood Type Not Reportable Baby's DANISHA Not Reportable Doses of RhIg Required 0 Imaging Data Radiologist's impression: ITS Impressions Ultrasound 06/25/24 20:27 IMPRESSION: Single, live intrauterine gestation. Estimated Gestational Age: 13 weeks, 2 days by crown rump length. MENDEL by ultrasound 12/29/2024. Discharge Plan Discharge Clinical Impression: Abdominal cramping affecting Patient Disposition: Home Condition: Stable Instructions: Antibiotic Form, Abdominal Pain in (ED) Additional Instructions: You were evaluated in the emergency department for abdominal cramping and . Your lab work is reassuring. The ultrasound shows a single live intrauterine gestation measuring 13 weeks and 2 days with an estimated date of delivery 12/29/2024. Please follow-up closely with your OBGYN. Return to the emergency department if you develop worsening pain, you develop vaginal bleeding or saturating over 1 pad or tampon an hour, lightheadedness, fever, or other concerning symptoms. Please have your beta hCG checked by your OBGYN in 48 hours to ensure dose of trending appropriately. Today it is 126,200. Patient Language: Bhutanese Prescriptions: No Action famotidine [Pepcid] 20 mg tablet 20 mg PO DAILY Qty: 90 3RF Follow-up/Referrals: PHYSICIAN,ALUMNI COORDINATOR [Non-Staff] -
[2024-06-25] MEDS: ACETAMINOPHEN 500 MG TABLET 1000 MG PO (19:24)
--- OUTSIDE RECORDS SUMMARY | 2024-06-25 19:51 | XMS_ITS | Continuity of Care Document ---
Author Organization [facility] Address [address] [place] [address] [address] [place] [address] Phone Care Team Providers Care Making Machine Operator Name Role Phone Morris PT,MPT,ATC, Jordan Unavailable Unavai lable Procedures Procedure Date Therapeutic Activities Neuromuscular Re-Ed Neuromuscular Re-Ed Therapeutic Activities Therapeutic Activities Neuromuscular Re-Ed Therapeutic Activities Neuromuscular Re-Ed Therapeutic Activities Neuromuscular Re-Ed Therapeutic Exercise Therapeutic Activities Neuromuscular Re-Ed Therapeutic Exercise Neuromuscular Re-Ed Therapeutic Activities Therapeutic Exercise Therapeutic Activities Neuromuscular Re-Ed Therapeutic Exercise Manual Therapy Therapeutic Exercise Neuromuscular Re-Ed Manual Therapy Therapeutic Activities Therapeutic Activities Neuromuscular Re-Ed Therapeutic Exercise Manual Therapy Manual Therapy Therapeutic Activities Neuromuscular Re-Ed Hot or Cold Pack Therapeutic Activities Therapeutic Exercise Neuromuscular Re-Ed Manual Therapy Neuromuscular Re-Ed PT Evaluation Moderate Complexity Therapeutic Activities Advance Directives Directive Yes / No Effective Date File Name No Information Encounters Encounter Description Practice Location Reason(s) For Visit Diagnoses Date Provider Providers Copied on Encounter [facility], [place], [place], [id number], tel:[phone] [place] No Information May- 2 Arturo Funes , [place], [place]. Referring Provider: Lelia Hines7 [address] [facility], [place], [address]. tel:[phone] [facility], [place], [place], [id number], [place] tel:[phone] [place] No Information 2 Arturo Funes , [place], [place]. Referring Provider: Lelia Hines7 N [facility], [place], [address]. tel:[phone] [facility] [address], [place], [place], [id number], [place] tel:[phone] [place] No Information 2 Arturo Funes , [place], [place]. Referring Provider: Pooja Hines N [facility], [place], [address]. tel:[phone] [facility], [place], [place], [id number], [place] tel:[phone] [place] No Information 2 Arturo Funes , [place], [place]. Referring Provider: Lelia Hines7 N [facility], [place], [address]. tel:[phone] [facility], [place], [place], [id number], [place] tel:[phone] [place] No Information 2 Otonielloidabala Raymundo. . Referring Provider: Pooja Hines N [facility], [place], [address]. tel:[phone] [facility], [address], [place], [place], [id number], [place] tel:[phone] [place] No Information 2 Luis Manuel Sainz. . Referring Provider: Pooja Hines N [facility], [place], [address]. tel:[phone] [facility] [address], [place], [place], [id number], [place] tel:[phone] [place] No Information 2 Arturo Funes , [place], [place]. Referring Provider: Pooja Hines [facility], [place], [address]. tel:[phone] [facility] [address], [place], [place], [id number], [place] tel:[phone] [place] No Information 2 Arturo Funes , [place], [place]. Referring Provider: Pooja Hines [facility], [place], [address]. tel:[phone] [facility] [address], [place], [place], [id number], [place] tel:[phone] [place] No Information 2 Arturo Funes , [place], [place]. Referring Provider: Pooja Hines N [facility], [place], [address]. tel:[phone] [facility] [address], [place], [place], [id number], [place] tel:[phone] [place] No Information Apr- 2 [place]. Referring Provider: Lelia Hines7 N [facility], [place], [address]. tel:[phone] [facility] [address], [place], [place], [id number], tel:[phone] [place] No Information 2 Willam Padilla. . Referring Provider: Lelia Hines7 [address] [facility], [place], [address]. tel:[phone] [facility] [address] [place] [address], [id number], tel:[phone] [place] No Information 2 Morris [place]. Referring Provider: Pooja Hines N [facility], [place], [address]. tel:[phone] [facility] [address] [place] [address], [id number], tel:[phone] [place] No Information 2 [place], [place]. Referring Provider: Pooja Hines N [facility], [place], [address]. tel:[phone] Family History Family Member Type Diagnosis Age At Onset No Information Payers Payer name Insurance type Covered alliance party ID Authorewafabiana dominicstephen(s) Slick ASHLEY [id number] [facility] [id number] Social History Type Description Quantity Date Captured [...]
--- OUTSIDE RECORDS SUMMARY | 2024-06-25 19:51 | XMS_ITS | Encounter Summary ---
Author Organization [facility] Address [address] [place] [address] Care Team Providers Care Typesetting Supervisor Name Role Phone No, Physician Primary Care Provider [phone] Rylie Hawkins NP Primary Care Provider Reason for Visit * Reason Onset Date Comments Med Refill 06/07/2018 Encounter Details Date Type Department Care Team (Late st Contact Info) Description 06/07/2018 Telephone [facility] at [address] [place] [address] Liliam Thomas M.A. Med Refill Social History [...] on filedocumented in this encounter Care Teams Typesetting Supervisor Relationship Specialty Start Date End Date No, Physician PCP - General 11/14/17 12/21/23 Rylie Hawkins NP [address] [place] [address] PCP - General Family Medicine 12/22/23 documented as of this encounter
--- OUTSIDE RECORDS SUMMARY | 2024-06-25 19:51 | XMS_ITS | Clinical Summary ---
Author Organization [place] [address] [facility] Address [address] [place] [address] Care Team Providers Care Superintendent Tests Name Role Phone Rylie Hawkins NP Primary Care Provider Allergies No known active allergies Medications buPROPion XL (WELLBUTRIN XL) 300 mg 24 hr tablet Take 1 tablet (300 mg total) by mouth rip/mould operator before breakfast 3 Active spironolactone (ALDACTONE) 25 [...] Comments Blood Pressure 120/79 12/27/2023 12:28 PM WEBSITE DESIGNER Pulse 87 12/27/2023 12:28 PM WEBSITE DESIGNER Temperature 36.8 C (98.3 F) 09/08/2017 4:04 PM CDT Respiratory Rate 16 12/27/2023 12:28 PM WEBSITE DESIGNER Oxygen Saturation 95% 09/08/2017 4:04 PM CDT [...] , 02/07/2003, 04/17/2002, Additional history exists Insurance [employer] OOS CIGNA BLUE [employer] OOS AETNA SIG [id number] Care Teams Superintendent Tests Relationship Specialty Start Date End Date Rylie Hawkins NP [address] [place] [address] PCP - General Family Medicine 12/22/23
--- OUTSIDE RECORDS SUMMARY | 2024-06-25 19:51 | XMS_ITS | Clinical Summary ---
Author Organization [facility] Address [address] [place] [address] Care Team Providers Care Recoil Spring Winder Name Role Phone Unavailable Primary Care Provider Unavailabl e Source Comments [facility],non-owned Affiliates and Associated Physician Practices is amultiple site organization consisting of ambulatory clinics and hospital sitesin [place], [place], [place] and [place]. This disclosure is being madepursuant to the Care Everywhere program and may not contain all information available regarding this patient. Last updated 17.[facility] Active Problems Problem Noted Date Diagnosed Date Abnormal chromosomal and gen etic finding on screening of mother 06/18/2024 Estimated Date of Delivery Comme nts Yes 12/25/2024 Based on last me nstrual period of 03/20/2024 Encounters Date Type Department Care Team Description 06/18/2024 7:59 AM CDT - 06/18/2024 11:59 PM CDT Hospital Encounter [facility] [address] [place] [address] Ryan Hoyt MD Discharge Disposition: Home or Self Care 06/18/2024 7:56 AM CDT - 06/18/2024 7:58 AM CDT Hospital Encounter [facility] [address] [place] [address] Ryan Hoyt MD Discharge Disposition: Home or Self Care 06/18/2024 Travel 06/11/2024 Telephone [facility] [address] [place] [address] Dunajcik, Yomaira S, manufacturing production technician from Last 3 Months Social History Tobacco [...] Info) Description 07/03/2024 8:15 AM CDT Appointment [facility] [address] [facility] [place] [address] 07/03/2024 9:00 AM CDT visit [facility] - [facility] [address] [facility] [address] [place] [address] 07/10/2024 2:30 PM CDT [facility] [address] [facility] [place] [address] Lawrence Huertas MD [address] [place] [address] 07/11/2024 9:00 AM CDT Appointment [facility] [address] [facility] [place] [address] Health Maintenance Due Date Last Done Comments [...] desired by the patient Coding ====== Procedures 27775: 1st Trimester 87573: Nuchal Translucency umper PACS Anatomical Region Laterality Modality Other 06/18/2024 8:59 AM CDT us Ordering Provider Unlisted MD MEJIA ORDERABLES Ed ited Result - Final from Last 3 Months Insurance ANTHEM CIGNA * Guarantor: DELPHINE JEAN BAPTISTE Account Type Relation to Patient Date of Phone Billing Address Personal/Family Spouse
--- OUTSIDE RECORDS SUMMARY | 2024-06-25 19:51 | XMS_ITS | Referral Summary ---
Author Organization [place] [id number] [facility] Address [address] [place] [address] Care Team Providers Care Lead Systems Analyst Name Role Phone Rylie Hawkins NP Primary Care Provider Allergies No known active allergies Medications buPROPion XL (WELLBUTRIN XL) 300 mg 24 hr tablet Take 1 tablet (300 mg total) by mouth gunite nozzle operator before breakfast 3 Active spironolactone (ALDACTONE) [...] Comments Blood Pressure 120/79 12/27/2023 12:28 PM CANT GANG SAWYER Pulse 87 12/27/2023 12:28 PM CANT GANG SAWYER Temperature 36.8 C (98.3 F) 09/08/2017 4:04 PM CDT Respiratory Rate 16 12/27/2023 12:28 PM CANT GANG SAWYER Oxygen Saturation 95% 09/08/2017 4:04 PM CDT Inhaled Oxygen Concentration - - Weight 63.5 kg (140 lb) 09/08/2017 4:04 PM CDT Height 165.1 cm (5' 5 ) 09/08/2017 4:04 PM CDT Body Mass Index 23.3 09/08/2017 4:04 PM CDT Plan of Treatment Not on file Insurance [employer] OOS CIGNA [employer] OOS AETNA SIG [id number] Care Teams Lead Systems Analyst Relationship Specialty Start Date End Date Rylie Hawkins NP [address] [place] [address] PCP - General Family Medicine 12/22/23
[2024-06-25 20:03] LABS: Basophils Percent Auto 0.4 % (0.2-1.2); Eosinophils Absolute Auto 0.1 K/mm3 (0-0.3); Eosinophils Percent Auto 0.9 % (0-4.4); Hematocrit 37.1 % (37.0-47.0); Hemoglobin 12.2 g/dL (12.0-15.0); Immature Granulocyte Absolute 0.01 K/mm3 (0.00-0.031); Immature Granulocyte Percent A 0.1 % (0-0.5); Lymphocytes Absolute Auto 1.65 K/mm3 (0.9-3.2); Mean Corpuscular HGB Conc 32.9 g/dl (32-36); Mean Corpuscular Hemoglobin 27.9 pg (26-34); Mean Corpuscular Volume 84.9 fl (80-100); Monocytes Absolute Auto 0.8 K/mm3 (0.1-0.6); Monocytes Percent Auto 10.1 % (2.6-8.5); Neutrophils Percent Auto 66.5 % (45.5-73.1); Platelet Count Result 203 k/mm3 (150-375); Red Blood Count 4.37 M/mm3 (4.2-5.4); Red Cell Distribution Width 12.6 % (11.5-14.5); White Blood Count 7.5 K/mm3 (4.5-10.0)
[2024-06-25 20:05] LABS: Add Urine Microscopic? NO; Appearance Urine Clear (Clear); Bilirubin Urine Negative (Negative); Blood Urine Negative (Negative); Color Urine Yellow (Yellow); Glucose Urine UA Negative (Negative); Ketones Urine Negative (Negative); Leukocyte Esterase Ur Negative LEU/UL (Negative); Nitrate Urine Negative (Negative); Protein Urine Negative (Negative); Specific Grav Ur 1.007 (1.001-1.035); Urobilinogen Urine 0.2 mg/dL (<2.0); pH Urine 7.5 (5.0-9.0)
[2024-06-25 20:14] LABS: Prothrombin Time 13.3 Seconds (11.1-14.7)
[2024-06-25 20:15] LABS: Partial Thromboplastin Time 28.2 Seconds (22.3-36.8)
[2024-06-25 21:08] LABS: Alanine Aminotransferase 18 U/L (6-35); Albumin Level 4.4 g/dL (3.5-5.1); Alkaline Phosphatase 53 U/L (38-126); Anion Gap 8 mmol/L (4-12); Aspartate Amino Transferase 24 U/L (14-36); Bilirubin,Total 0.3 mg/dL (0.2-1.3); Blood Urea Nitrogen 7 mg/dL (7-17); Calcium 9.3 mg/dL (8.4-10.2); Carbon Dioxide 23 mmol/L (22-30); Chloride 105 mmol/L (98-107); Estimated CRCL calculation 172 ml/min; Estimated Glomerular Filt Rate > 60; Glucose 86 mg/dL (65-110); Sodium 136 mmol/L (137-145)
== END 2024-06-25 22:02 | disposition home or self-care (01) ==
PROVIDERS: Emergency Provider Physician Assistant
DX: O26.891 Other specified pregnancy related conditions, first trimester (principal); R10.30 Lower abdominal pain, unspecified; O09.891 Supervision of other high risk pregnancies, first trimester; O99.611 Diseases of the digestive system complicating pregnancy, first trimester; K21.9 Gastro-esophageal reflux disease without esophagitis; Z87.891 Personal history of nicotine dependence; Z3A.13 13 weeks gestation of pregnancy
CPT/HCPCS: 36415; 76801; 80053; 81003; 84702; 85025; 85461; 85610; 85730; 86850; 86900; 86901; 99284; A9270